=== PATIENT | male | born 1955 | race Two or more races ===

== ENCOUNTER 2021-06-05 07:44 | Outpatient (REF) | payer MEDICAID, SELFPAY | END 2021-06-05 07:45 | disposition home or self-care (01) | LOC: HO.HOSX 07:44 | PROVIDERS: Visit Provider Physician Assistant | DX: Z13.89 Encounter for screening for other disorder (principal) ==

== ENCOUNTER → 2021-06-18 14:07 | Outpatient (BNVA) | payer MEDICAID, SELFPAY | PROVIDERS: Visit Provider Surgery Vascular Surgery | DX: I83.12 Varicose veins of left lower extremity with inflammation (principal) | CPT/HCPCS: 99202 ==

== ENCOUNTER 2021-07-08 12:50 | Outpatient (REF) | payer MEDICAID, SELFPAY ==
--- NOTE | ~2021-07-08 | US_ITS ---
EXAMINATION: BILATERAL LOWER EXTREMITY VENOUS ULTRASOUND (REFLUX EXAM) CLINICAL INDICATION: Bilateral lower extremity varicose veins. COMPARISON: None. TECHNIQUE: Color flow triplex imaging and compression Doppler was performed to evaluate both the deep and the superficial systems bilaterally. To evaluate the superficial system, the examination was performed in the upright position. Color-flow Doppler ultrasound and compression ultrasound were utilized. In addition, maneuvers were utilized to demonstrate reflux. FINDINGS: 1. DEEP VENOUS ULTRASOUND OF THE RIGHT LOWER EXTREMITY: Common Femoral Vein: Compressible, normal respiratory variation and augmented flow. Femoral vein: Compressible, normal color flow and augmentation. Popliteal Vein: Compressible, normal augmentation. Deep Reflux: There is no evidence of reflux in the deep system in either the common femoral vein or the popliteal vein. There is no evidence of a Suarez's cyst. 2. SUPERFICIAL ULTRASOUND WITH DOPPLER OF RIGHT LOWER EXTREMITY GREAT SAPHENOUS VEIN: Saphenofemoral junction-proximal thigh: 1.0 cm; Reflux: Greater than 2.9 seconds. Max diameter: 1.0 cm Min diameter: 0.4 cm Reflux: There is reflux throughout the left great saphenous vein measuring up to 3.2 seconds. DUPLICATED MEDIAL GREAT SAPHENOUS VEIN: None Imaged. DUPLICATED LATERAL GREAT SAPHENOUS VEIN: None Imaged. SMALL SAPHENOUS VEIN: Saphenopopliteal junction: 0.1 cm; Reflux: No evidence of reflux. VEIN OF GIACOMINI: None Imaged. PERFORATORS: Location: Proximal and midcalf. The midcalf shank cementer hand measures up to 4 mm. Reflux: No reflux identified. VARICOSITIES: Location: At knee, proximal and midcalf. All varicosities measure greater than 3 mm. Reflux: There is reflux within the varicosities at the knee and calf measuring up to 1.9 seconds. 3. DEEP VENOUS ULTRASOUND OF THE LEFT LOWER EXTREMITY: Common Femoral Vein: Compressible, normal respiratory variation and augmented flow. Femoral vein: Compressible, normal color flow and augmentation. Popliteal Vein: Compressible, normal augmentation. Deep Reflux: Popliteal vein, greater than 0.9 seconds. There is no evidence of a Suarez's cyst. 4. SUPERFICIAL ULTRASOUND WITH DOPPLER OF LEFT LOWER EXTREMITY GREAT SAPHENOUS VEIN: Saphenopopliteal junction/proximal thigh: 1.0 cm; Reflux: Greater than 3.1 seconds of reflux. Max diameter: 1.0 cm Min diameter: 0.2 cm Reflux: There is reflux throughout the left great saphenous vein measuring up to 3.1 seconds. DUPLICATED MEDIAL GREAT SAPHENOUS VEIN: None Imaged. DUPLICATED LATERAL GREAT SAPHENOUS VEIN: None Imaged. SMALL SAPHENOUS VEIN: Saphenofemoral junction: 0.2 cm; Reflux: No evidence of reflux. VEIN OF GIACOMINI: None Imaged. PERFORATORS: Location: Proximal and distal calf. Perforators measure up to 3 mm. Reflux: All perforators demonstrate reflux measuring up to 2.8 seconds. VARICOSITIES: Location: Midcalf, distal thigh and proximal calf. Varicosities range in size from 3 mm to 1 cm (distal thigh). Reflux: All varicosities imaged are refluxing measuring up to 3.3 seconds. 3. DEEP VENOUS ULTRASOUND OF THE LEFT LOWER EXTREMITY: Common Femoral Vein: Compressible, normal respiratory variation and augmented flow. Femoral vein: Compressible, normal color flow and augmentation. Popliteal Vein: Compressible, normal augmentation. Deep Reflux: Common femoral vein and popliteal vein, measuring greater than 3 seconds. There is no evidence of a Suarez's cyst. US/US venous duplex LE BI IMPRESSION: 1. Bilateral great saphenous venous insufficiency. 2. Bilateral refluxing perforators and varicosities throughout both legs. 3. Bilateral deep venous insufficiency. 4. No evidence of DVT.
== END 2021-07-08 12:51 | disposition home or self-care (01) ==
LOC: HO.US 12:50
PROVIDERS: Visit Provider Surgery Vascular Surgery
DX: I83.893 Varicose veins of bilateral lower extremities with other complications (principal)
CPT/HCPCS: 93970

== ENCOUNTER → 2021-07-21 12:56 | Outpatient (BNVA) | payer MEDICAID, SELFPAY | PROVIDERS: Visit Provider Surgery Vascular Surgery | DX: I83.12 Varicose veins of left lower extremity with inflammation (principal) | CPT/HCPCS: 99212 ==

== ENCOUNTER → 2021-07-24 09:39 | Outpatient (BNVA) | payer MEDICAID, SELFPAY | PROVIDERS: Visit Provider Surgery Vascular Surgery | DX: I83.92 Asymptomatic varicose veins of left lower extremity (principal); E11.9 Type 2 diabetes mellitus without complications; E78.00 Pure hypercholesterolemia, unspecified | CPT/HCPCS: 36482 ==

== ENCOUNTER 2021-07-27 13:47 | Outpatient (REF) | payer MEDICAID, SELFPAY ==
--- NOTE | ~2021-07-27 | US_ITS ---
EXAMINATION: US VENOUS ULTRASOUND WITH DOPPLER LOWER EXTREMITY, LEFT CLINICAL INFORMATION: This is a 65-year-old male who status post closure of the left great saphenous vein on 07/24/2021. COMPARISON: None TECHNIQUE: Ultrasound of the deep veins is performed from the hip to the calf with compression sonography and color and pulse Doppler assessment. Spectral analysis with color-flow imaging is performed. FINDINGS: There is normal venous compression and respiratory variation and augmented flow. The visualized common femoral vein, superficial femoral vein, profunda femoral vein, popliteal vein, and the trifurcation region shows no evidence of deep venous thrombosis. There is no significant popliteal fossa cyst. The left great saphenous vein appears thrombosed. The thrombus begins 0.8 cm from the saphenofemoral junction. No thrombus is seen in the common femoral vein. US/US venous duplex LE LT IMPRESSION: 1. There is no deep vein thrombosis. 2. The patient is status post closure of the left great saphenous vein. The thrombus begins 0.8 cm from the saphenofemoral junction but does not extend into the common femoral vein.
== END 2021-07-27 13:48 | disposition home or self-care (01) ==
LOC: HO.HMGCX 13:47
PROVIDERS: Visit Provider Surgery Vascular Surgery
DX: M79.605 Pain in left leg (principal)
CPT/HCPCS: 93971

== ENCOUNTER → 2021-08-06 12:56 | Outpatient (BNVA) | payer MEDICAID, SELFPAY | PROVIDERS: PCP Nurse Practitioner Family; Visit Provider Surgery Vascular Surgery | DX: I83.11 Varicose veins of right lower extremity with inflammation (principal) | CPT/HCPCS: 99212 ==

== ENCOUNTER → 2021-09-04 08:13 | Outpatient (BNVA) | payer MEDICAID, SELFPAY | PROVIDERS: PCP Nurse Practitioner Family; Visit Provider Surgery Vascular Surgery | DX: I83.11 Varicose veins of right lower extremity with inflammation (principal) | CPT/HCPCS: 36482 ==

== ENCOUNTER 2021-09-07 13:55 | Outpatient (REF) | payer MEDICAID, SELFPAY ==
--- NOTE | ~2021-09-07 | US_ITS ---
EXAMINATION: US VENOUS ULTRASOUND WITH DOPPLER LOWER EXTREMITY, RIGHT CLINICAL INFORMATION: Post-RFA COMPARISON: Previous exam most recent July 2021 TECHNIQUE: Ultrasound of the deep veins is performed from the hip to the calf with compression sonography and color and pulse Doppler assessment. Spectral analysis with color-flow imaging is performed. FINDINGS: There is normal venous compression and respiratory variation and augmented flow. The visualized common femoral vein, superficial femoral vein, profunda femoral vein, popliteal vein, and the trifurcation region shows no evidence of deep venous thrombosis. There is echogenic material seen in the right greater saphenous vein post RFA. This extends to 3.5 cm from the saphenofemoral junction. There is Rouleaux flow seen in the popliteal vein, greater saphenous vein in the upper thigh and saphenofemoral junction. US/US venous duplex LE RT IMPRESSION: No DVT demonstrated in the right lower extremity.
== END 2021-09-07 13:56 | disposition home or self-care (01) ==
LOC: HO.HMGCX 13:55
PROVIDERS: Visit Provider Surgery Vascular Surgery
DX: M79.604 Pain in right leg (principal)
CPT/HCPCS: 93971

== ENCOUNTER → 2021-09-22 12:58 | Outpatient (BNVA) | payer MEDICAID, SELFPAY | PROVIDERS: Visit Provider Surgery Vascular Surgery | DX: I83.11 Varicose veins of right lower extremity with inflammation (principal) | CPT/HCPCS: 99212 ==

== ENCOUNTER 2022-07-28 08:04 | Outpatient (REF) | payer MEDICAID, SELFPAY ==
--- NOTE | ~2022-07-28 | US_ITS ---
EXAMINATION: US ABDOMEN COMPLETE CLINICAL INFORMATION: Elevated liver enzymes. COMPARISON: None TECHNIQUE: Real-time imaging of the abdominal viscera. FINDINGS: PANCREAS: Obscured by overlying bowel gas ABDOMINAL AORTA: Obscured by overlying bowel gas INFERIOR VENA CAVA: Visualized portions are normal. LIVER: Enlarged measuring 18.4 cm The liver contour is normal. Diffuse increased echogenicity of the liver parenchyma. No focal hepatic lesion. There is no intrahepatic biliary duct dilatation seen. GALLBLADDER: Normal. The gallbladder is physiologically distended without evidence of stones, sludge, polyps, wall thickening or pericholecystic fluid. COMMON BILE DUCT: Normal in caliber measuring 0.6 cm in diameter. RIGHT KIDNEY: Normal. No hydronephrosis. No renal calculi or focal parenchymal lesions. The kidney measures 10.9 cm in maximum dimension. LEFT KIDNEY: Normal. No hydronephrosis. No renal calculi or focal parenchymal lesions. The kidney measures 10.6 cm in maximum dimension. SPLEEN: Normal. The spleen measures 10.0 cm in maximum dimension. FREE FLUID: None. US/US abdomen complete IMPRESSION: Hepatomegaly. Diffuse increased echogenicity of the liver parenchyma likely reflects fatty infiltration.
== END 2022-07-28 08:05 | disposition home or self-care (01) ==
LOC: HO.US 08:04
PROVIDERS: Visit Provider Registered Nurse
DX: R74.8 Abnormal levels of other serum enzymes (principal)
CPT/HCPCS: 76700

== ENCOUNTER → 2023-10-24 09:17 | Outpatient (BNVA) | payer MEDICAID, SELFPAY | PROVIDERS: PCP Registered Nurse; Visit Provider Nurse Practitioner Family ==

== ENCOUNTER 2023-12-12 12:24 | Outpatient (REF) | payer MEDICARE, MEDICAID, SELFPAY ==
[2023-12-12 13:45] LABS: Alanine Aminotransferase 19 U/L (0-40); Albumin Level 4.3 g/dL (3.5-5.0); Alkaline Phosphatase 139 U/L (39-117); Anion Gap 13 (12-20); Aspartate Amino Transferase 21 U/L (5-37); Bilirubin Total 0.8 mg/dL (0.0-1.0); Blood Urea Nitrogen 12 mg/dL (9-16); Calcium 9.3 mg/dL (8.4-10.2); Carbon Dioxide 27 mmol/L (22-29); Chloride 100 mmol/L (96-108); Cholesterol 165 mg/dL (<200); Estimated Glomerular Filt Rate > 60; Glucose Random 112 mg/dL (60-115); HDL Cholesterol 46 mg/dL (>40); LDL Cholesterol Calculated 105 mg/dL (<100); Potassium 3.9 mmol/L (3.3-5.1); Sodium 136 mmol/L (135-145); Total Protein 7.4 g/dL (6.5-8.0); Triglycerides 72 mg/dL (<150)
[2023-12-12 14:20] LABS: Creatinine Urine 94.98 mg/dL; Microalbum/Creatinine Ratio Ur 8.4 ug/mg cr (<30)
== END 2023-12-12 12:25 | disposition home or self-care (01) ==
LOC: HO.HHCL 12:24
PROVIDERS: Visit Provider Registered Nurse
DX: E11.65 Type 2 diabetes mellitus with hyperglycemia (principal)
CPT/HCPCS: 36415; 80053; 80061; 82043; 82570

== ENCOUNTER 2024-06-11 10:12 | Outpatient (REF) | payer MEDICARE, MEDICAID, SELFPAY ==
--- NOTE | ~2024-06-11 | XR_ITS ---
EXAMINATION: XR KNEE, LEFT CLINICAL INFORMATION: Chronic left knee pain. COMPARISON: 06/17/2018. TECHNIQUE: Three views of the left knee. FINDINGS: Severe medial compartment joint space narrowing with marginal osteophytes and articular sclerosis. More moderate patellofemoral and lateral compartment osteoarthritis. No joint effusion. Varus angulation at the knee. Enthesopathic spurring at the proximal aspect of the tibia posteriorly. Osseous loose body in the posterior aspect of the joint measures 1 cm. Atherosclerotic calcification in the popliteal fossa. 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 Electronically signed by: Carmelo Shipley MD 06/17/2024 05:17 PM EDT
== END 2024-06-11 10:13 | disposition home or self-care (01) ==
LOC: HO.HHCX 10:12
PROVIDERS: Visit Provider Registered Nurse
DX: M25.562 Pain in left knee (principal); G89.29 Other chronic pain
CPT/HCPCS: 73564

== ENCOUNTER 2024-06-15 08:42 | Outpatient (REF) | payer MEDICARE, MEDICAID, SELFPAY ==
--- NOTE | ~2024-06-15 | US_ITS ---
EXAMINATION: ABDOMINAL AORTIC ULTRASOUND CLINICAL INFORMATION: Former smoker. COMPARISON: None available. TECHNIQUE: Mancera-scale, color Doppler and spectral Doppler evaluation of the abdominal aorta was performed. FINDINGS: 1. The aorta is normal. 2. The measurements of the aorta in maximum AP and transverse dimensions respectively are as follows: Proximal: 2.7 x 2.6 cm, Mid: 1.9 x 1.9 cm, Distal: 1.8 x 1.8 cm. 3.The measurements of the common iliac arteries in maximum AP dimension are as follows: Right common iliac artery: 1.1 x 1.1 cm, left common iliac artery: 1.1 x 1.1 cm. US/US abdominal aortic aneurysm IMPRESSION: No evidence of abdominal aortic aneurysm. Electronically signed by: Parviz Anderson MD 06/17/2024 11:24 AM EDT
== END 2024-06-15 08:43 | disposition home or self-care (01) ==
LOC: HO.US 08:42
PROVIDERS: PCP Registered Nurse; Visit Provider Registered Nurse
DX: Z13.6 Encounter for screening for cardiovascular disorders (principal); I10 Essential (primary) hypertension; Z87.891 Personal history of nicotine dependence
CPT/HCPCS: 76706

== ENCOUNTER 2024-07-10 08:43 | Outpatient (RCR) | payer MEDICARE, MEDICAID, SELFPAY | END 2024-07-23 13:08 | disposition home or self-care (01) | LOC: HO.PT 08:43 | PROVIDERS: PCP Registered Nurse; Visit Provider Registered Nurse | DX: M25.562 Pain in left knee (principal) | CPT/HCPCS: 97110; 97162 ==

== ENCOUNTER 2024-08-01 17:35 | Emergency (ER) | payer MEDICARE, MEDICAID, SELFPAY ==
--- NOTE | ~2024-08-01 | XR_ITS ---
EXAMINATION: XR HAND/WRIST, RIGHT CLINICAL INFORMATION: Right hand laceration/fall. Query fracture. COMPARISON: None available. TECHNIQUE: PA, lateral, and oblique and scaphoid views of the right hand and wrist. FINDINGS: No acute fracture or dislocation is seen. 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 Joint space narrowing with degenerative changes are seen most notable at the second and third MCP joints, and first IP joint. Soft tissue ossifications ossification are seen adjacent to the first IP joint and third and fourth PIP joints. XR/XR hand wrist RT IMPRESSION: 1. No acute fracture or dislocation is seen. 2. Degenerative changes are seen in the hand and wrist. Electronically signed by: Ronald Moulton MD 08/01/2024 08:30 PM EDT
[2024-08-01 18:38] VITALS: BP 153/95; PULSE 107; RESP 16; TEMP 36.9; O2SAT 96; BMI 30.1
--- NOTE | 2024-08-01 18:42 | ED_ITS ---
HPI - General Adult General Chief complaint: Wound/Laceration Stated complaint: R hand laceration Time Seen by Provider: 08/01/24 21:06 Source: patient and family Mode of arrival: ambulatory Limitations: no limitations History of Present Illness ED Provider: Dr. Castillo HPI narrative: Patient tripped and fell landing on right hand causing a large laceration to his palm. He denies passing out, no chest pain is not up to date with his tetanous. Patient is a diabetic with high cholesterol. Onset (ago): hour(s) Severity: moderate Related Data Home Medications ?Medication ?Instructions ?Recorded ?Confirmed atorvastatin 80 mg tablet (Lipitor) 80 mg PO DAILY 06/18/21 glipizide 2.5 mg tablet, extended 2.5 mg PO DAILY 06/18/21 release 24 hr hydrochlorothiazide 25 mg tablet 25 mg PO QAM 06/18/21 lisinopril 10 mg tablet 10 mg PO DAILY 06/18/21 metformin 500 mg tablet 500 mg PO BID 06/18/21 naproxen 500 mg tablet 500 mg PO BID 06/18/21 omeprazole 20 mg capsule,delayed 20 mg PO DAILY 06/18/21 release ergocalciferol (vitamin D2) 1,250 1,250 mcg PO QWEEK 10/24/23 mcg (50,000 unit) capsule dulaglutide 0.75 mg/0.5 mL mg subcut QWEEK 02/13/24 subcutaneous pen injector (Trulicity) Previous Rx's ?Medication ?Instructions ?Recorded bisacodyl 5 mg tablet,delayed 20 mg (4 x 5 mg) PO ONCE 1 day #4 10/24/23 release (Dulcolax (bisacodyl)) tabs polyethylene glycol 3350 17 238 g PO ONCE #238 grams 10/24/23 gram/dose oral powder (Miralax) amoxicillin 875 mg-potassium 1 tab PO BID #10 tabs 08/01/24 clavulanate 125 mg tablet Allergies Allergy/AdvReac Type Severity Reaction Status Date / Time No Known Allergies Allergy Verified 08/01/24 18:39 Review of Systems Review of Systems: Yes all other systems are reviewed and are negative Neurologic: Denies Sensory deficit (Neuro) PMFSH Past Medical History Medical History Hypercholesteremia Diabetes Surgical History Hx of colonoscopy Family History Family History Brother Cancer Social History Social History Unable to assess alcohol history related to: Unknown Patient Tobacco Use Status: Never used Tobacco Smoked in Last 30 Days: No Use of substances other than those prescribed or required for medical reasons: Unknown Advance Directives: No Advance Directives Information Provided: No Physical Exam ED Vital Signs: Vital Signs - 24 hr 08/01/24 18:38 08/01/24 22:38 08/01/24 22:46 Temperature 98.4 F 97.8 F 97.8 F Pulse Rate 107 H 96 96 Respiratory Rate 16 16 16 Blood Pressure 153/95 H 139/89 139/89 Pulse Oximetry 96 98 98 Oxygen Delivery Method Room Air Room Air Room Air BMI result Body Mass Index 30.1 Const General: healthy appearing Nutritional Appearance: average body habitus Orientation/consciousness: oriented to person and patient oriented x3 Limitations: no limitations HENMT Head: Yes normal to inspection Ears: external ears normal General nose exam: Normal external nose present Mouth: Normal oral and palatal mucosa present and oropharynx normal Throat: Yes posterior oropharynx normal Eyes General: appearance normal, both eyes and all related structures Neck Neck: Yes normal visual inspection Chest Chest palpation & inspection: normal inspection of the chest Resp Auscultation: clear to auscultation bilaterally Cardio Jugular venous distension: no JVD Rate: regular rate Rhythm: regular rhythm Heart sounds: S1 normal heart sound present and S2 normal heart sound present GI Inspection: Yes normal to inspection Palpation (GI): Soft to palpation, nontender and No hepatosplenomegaly present Auscultation: normal bowel sounds General: Yes no CVA tenderness Back/Spine/Pelvis Back: no CVA tenderness Skin Other: see extremity note Neuro General: oriented to person and patient oriented x3 Cranial nerves: Yes CN's II-XII intact bilaterally Motor exam (neuro): 5/5 motor strength present throughout Sensory Exam: No Sensory deficit (Neuro) Extrem Other: right hand with 10cm laceration across his entire palm, all fingers moving no evidence of tendon laceration. Psych Appearance: grossly normal Course Course Course Narrative: RME: 68 yold male presents to the ED for right hand laceration and pain after using hand to break fall. physical exam positive for palm laceration that is deep and large. Positive for complete range of motion of fingers. Vascular motor neuro exam of extremity intact. Reevaluation(s) Reevaluation #1: Patient prepped and draped in sterile fashion, 1% lidocaine used for anesthesia, wound irrigated under pressure with saline, closed with 4-0 nylon x 20. Patient tolerated procedure well. Time: 22:26 Medications Administered Discontinued Medications Generic Name Dose Route Start Last Admin Trade Name Freq PRN Reason Stop Dose Admin Amoxicillin/Clavulanate Potassium 875 mg 08/01/24 22:26 08/01/24 22:41 Amoxicillin/Potassium Clav 875 Mg Tablet PO 08/01/24 22:27 875 mg ONCE ONE Administration Diphtheria/Tetanus/Acell Pertussis 0.5 ml 08/01/24 21:18 08/01/24 22:28 Diphth,Pertus(Acell),Tet Adult 0.5 Ml Syringe IM 08/01/24 21:19 0.5 ml .ONCE ONE Administration Lidocaine HCl 20 ml 08/01/24 21:18 08/01/24 21:31 Lidocaine Hcl 1 % 20 Ml Vial SUBCUT 08/01/24 21:19 Not Given ONCE ONE Lidocaine HCl 30 ml 08/01/24 22:26 08/01/24 22:34 Lidocaine Hcl 1 % 10 Ml Vial SUBCUT 08/01/24 22:27 30 ml ONCE ONE Administration Medical Decision Making Differential Diagnosis Differential Diagnoses: The differential diagnosis associated with the presentation includes (hand laceration, hand fracture, tendon injury) Admission/Observation Consideration of admission/observation: Escalation of care including admission/observation considered (upon arrival patient with large injury was considered for admission on possible surgery) Independent Interpretation I performed an independent interpretation of an: Plain X-Ray (Hand and wrist, djd no fracture) Independent Historian Clinical information obtained from an independent historian. History obtained f rom or confirmed by: Other (daughter) Chronic Conditions Patient?s care impacted by: Diabetes Discharge Plan Discharge Clinical Impression: Laceration Patient Disposition: Home, Self-Care Instructions: Care For Your Stitches (ED) Additional Instructions: suture removal 10 days Prescriptions: New amoxicillin-pot clavulanate 875-125 mg tablet 1 tab PO BID Qty: 10 0RF No Action Anthonyity 0.75 mg/0.5 mL pen injector subcut QWEEK metformin 500 mg tablet 500 mg PO BID omeprazole 20 mg capsule,delayed release(DR/EC) 20 mg PO DAILY hydrochlorothiazide 25 mg tablet 25 mg PO QAM naproxen 500 mg tablet 500 mg PO BID lisinopril 10 mg tablet 10 mg PO DAILY glipizide 2.5 mg tablet extended release 24hr 2.5 mg PO DAILY atorvastatin [Lipitor] 80 mg tablet 80 mg PO DAILY ergocalciferol (vitamin D2) 1,250 mcg (50,000 unit) capsule 1,250 mcg PO QWEEK bisacodyl [Dulcolax (bisacodyl)] 5 mg tablet,delayed release (DR/EC) 20 mg PO ONCE 1 Days Qty: 4 0RF Rx Instructions: take 4 tabs at noon the day before your colonoscopy polyethylene glycol 3350 [Miralax] 17 gram/dose powder 238 g PO ONCE Qty: 238 0RF Rx Instructions: As directed by gastroenterology department at [facility] Interventions: ED Discharge Assessment Last Done: 08/01/24 22:46 Discharge Date/Time: 08/01/24 22:47 Print Language: Maltese
[2024-08-01] MEDS: Diphth,Pertus(ACell),Tet Adult 0.5 ML SYRINGE IM (22:28)
[2024-08-01] MEDS: Lidocaine HCl 1 % 10 ML VIAL 30 ML SUBCUT (22:34)
[2024-08-01 22:38] VITALS: BP 139/89; PULSE 96; RESP 16; TEMP 36.6; O2SAT 98
[2024-08-01] MEDS: Amoxicillin/Potassium Clav 875 MG TABLET PO (22:41)
[2024-08-01 22:46] VITALS: BP 139/89; PULSE 96; RESP 16; TEMP 36.6; O2SAT 98
== END 2024-08-01 22:47 | disposition home or self-care (01) ==
PROVIDERS: Emergency Provider Emergency Medicine; PCP Registered Nurse
DX: S61.411A Laceration without foreign body of right hand, initial encounter (principal); W01.0XXA Fall on same level from slipping, tripping and stumbling without subsequent striking against object, initial encounter; Y93.9 Activity, unspecified; Y92.9 Unspecified place or not applicable; Y99.9 Unspecified external cause status; E11.9 Type 2 diabetes mellitus without complications; Z23 Encounter for immunization; Z79.899 Other long term (current) drug therapy
CPT/HCPCS: 73110; 73130; 90471; 90715; 99284; J2003

== ENCOUNTER 2024-08-13 10:51 | Emergency (ER) | payer MEDICARE, MEDICAID, SELFPAY ==
[2024-08-13 11:19] VITALS: BP 154/100; PULSE 113; RESP 20; TEMP 36.6; O2SAT 93; BMI 34.2
--- NOTE | 2024-08-13 11:19 | ED.GENADULT ---
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 Initially injured on 08/01, seen here, had neg x-ray, sutures placed, and was started on Augmentin. He completed the full course of Augmentin as prescribed. States when his PCP removed the sutures, a small area in the center of the wound remained opened and so they applied steri-strips. Patient denies any weakness, numbness, tingling to fingers or hand. Denies any drainage. Denies fevers/chills/body aches. Denies pain to hand. MD complaint: wound dehiscence Onset (ago): day(s) Location: right and upper extremity Associated symptoms: denies other symptoms Related Data Home Medications ?Medication ?Instructions ?Recorded ?Confirmed atorvastatin 80 mg tablet (Lipitor) 80 mg PO DAILY 06/18/21 glipizide 2.5 mg tablet, extended 2.5 mg PO DAILY 06/18/21 release 24 hr hydrochlorothiazide 25 mg tablet 25 mg PO QAM 06/18/21 lisinopril 10 mg tablet 10 mg PO DAILY 06/18/21 metformin 500 mg tablet 500 mg PO BID 06/18/21 naproxen 500 mg tablet 500 mg PO BID 06/18/21 omeprazole 20 mg capsule,delayed 20 mg PO DAILY 06/18/21 release ergocalciferol (vitamin D2) 1,250 1,250 mcg PO QWEEK 10/24/23 mcg (50,000 unit) capsule dulaglutide 0.75 mg/0.5 mL mg subcut QWEEK 02/13/24 subcutaneous pen injector ([facility]) Previous Rx's ?Medication ?Instructions ?Recorded bisacodyl 5 mg tablet,delayed 20 mg (4 x 5 mg) PO ONCE 1 day #4 10/24/23 release (Dulcolax (bisacodyl)) tabs polyethylene glycol 3350 17 238 g PO ONCE #238 grams 10/24/23 gram/dose oral powder (Miralax) amoxicillin 875 mg-potassium 1 tab PO BID #10 tabs 08/01/24 clavulanate 125 mg tablet Allergies Allergy/AdvReac Type Severity Reaction Status Date / Time No Known Allergies Allergy Verified 08/13/24 11:22 Review of Systems Review of Systems: As per HPI. Yes all other systems are reviewed and are negative Constitutional: Constitutional: Reports as per HPI [facility] Past Medical History Medical History Hypercholesteremia Diabetes Surgical History Hx of colonoscopy Family History Family History Brother Cancer Social History Social History Unable to assess alcohol history related to: Unknown Patient Tobacco Use Status: Never used Tobacco Advance Directives: No Advance Directives Information Provided: Yes Do you have a plan to hurt others: No Plan Physical Exam ED Vital Signs: Vital Signs - 24 hr 08/13/24 11:19 08/13/24 17:11 Temperature 98 F 97.8 F Pulse Rate 113 H 101 H Respiratory Rate 20 16 Blood Pressure 154/100 H 158/88 H Pulse Oximetry 93 98 Oxygen Delivery Method Room Air Room Air BMI result Body Mass Index 34.2 Vital signs have been reviewed and appear to be correct. Blood pressure elevated. Heart rate slightly tachycardic. Respiratory rate normal. Temperature normal. Oxygen saturation normal. Const General: cooperative, healthy appearing and no acute distress Orientation/consciousness: oriented to person, oriented to place, oriented to time and patient oriented x3 Limitations: no limitations [facility] Head: Yes normocephalic and Yes atraumatic Ears: external ears normal General nose exam: Normal external nose present Face and sinus: Yes face symmetric Mouth: oropharynx normal and moist mucous membranes Throat: Yes uvula midline Eyes Pupils: Equal, round and reactive pupils present Neck Neck: Yes normal visual inspection and Yes supple Resp Effort & Inspection: normal respiratory effort and able to speak in complete sentences Auscultation: clear to auscultation bilaterally Cardio Rate: regular rate Rhythm: regular rhythm Heart sounds: S1 normal heart sound present and S2 normal heart sound present GI Palpation (GI): Soft to palpation and nontender Auscultation: normoactive bowel sounds General: Yes no CVA tenderness Back/Spine/Pelvis Back: no CVA tenderness Skin General skin exam: elasticity normal and turgor normal Neuro General: oriented to person, oriented to place, oriented to time, patient oriented x3, moves all extremities, no focal motor deficits and CN's II-XI intact bilaterally Cranial nerves: Yes Equal, round and reactive pupils present Cognition (Neuro): normal cognition Extrem Other: General: Yes full ROM, Yes no pedal edema and Yes no calf tenderness Right upper extremity: Extremity exam: right hand Details: normal capillary refill, neuromotor exam normal, neurosensory exam normal, tendon exam normal, vascular exam Details: radial pulse present, normal ROM of fingers and other (wound on palm with well approximated edges and dehiscence in center of wound with macerated tissue to edges, see photo); no tenderness and no unusual warmth Psych Mental Status: mental status grossly normal Affect: normal affect Thought process: Normal thought process present Course Course Course Narrative: RME performed by Ashtyn Macedo PA-C. Patient is a 68 year old assigned male at presenting to the emergency department with a right hand wound that has re-opened. Patient states he got stitches on 08/01 and had them removed the other day and now his wound has re-opened. Patient states that he finished his antibiotic as prescribed. Detailed physical exam and review of systems are deferred to the meter tester primary. Patient placed back in the waiting room pending room availability. Medications Administered Discontinued Medications Generic Name Dose Route Start Last Admin Trade Name Shay PRN Reason Stop Dose Admin Bacitracin 1 appl 08/13/24 17:52 08/13/24 17:58 Bacitracin Oint 0.9 Gm Packet TOPICAL 08/13/24 17:53 1 appl ONCE ONE Administration Protocol Medical Decision Making Medical Decision Making [facility] Narrative: Patient is a 68-year-old right hand dominant [place] speaking male with history of DM presenting to the ED with complaint of right hand wound which was reopened after sutures were removed on Tuesday by PCP. On exam patient is awake, A+Ox3, VS WNL, afebrile, normal neurological exam without focal deficits, physical exam findings as above. No pus or drainage from wound, no surrounding erythema or warmth, does not appear acutely infected. Given reported symptoms and physical exam findings, initial differential includes wound dehiscence, infection, impaired wound healing. He is neurovascularly intact with good ROM. Case discussed with morgan Pete, who recommends cleaning wound, applying small amount of bacitracin, and applying nonstick dressing as well as advising patient to clean area once daily with half strength peroxide, and keeping hand open to air unless at risk for becoming soiled. Patient states he is not currently working at this time, does not do any gardening or other activities where his hand might become soiled. Advised patient that if he were to do any activities where his hand might become soiled, to cover the area with the nonstick dressing. Per morgan, patient can follow up with PCP if wound is healing well, return to ED with any complications. Strict return precautions discussed with patient at bedside. Patient verbalized understanding of and agreement with plan. In-person interpreter and translator was utilized for all interactions, assessments, and discussions. Differential Diagnosis Differential Diagnoses: The differential diagnosis associated with the presentation includes As per MDM Consult Healthcare Provider Management of the patient was discussed with: Heel Sorter (morgan Pete) External Record Review External record reviewed: Inpatient record, Office record and Outpatient record Chronic Conditions Patient?s care impacted by: Diabetes Discharge Plan Discharge Clinical Impression: Dehiscence of wound Patient Disposition: Home, Self-Care Additional Instructions: You were evaluated in the emergency department today for a wound to your right hand which reopened after sutures were removed. In the emergency department, some of the skin was removed from the wound and a new dressing was applied. We recommend that you clean the area once daily with half-strength hydrogen peroxide (1 part peroxide to 1 part water). Do not apply full strength peroxide to the wound. You can also wash her hand in the sink or shower with soap and water. If your hands will not be getting soiled, you can leave the wound open to air. If you are going to do something where hands may get soiled, we recommend covering the wound with the nonstick dressings provided to you. Do not use Band-Aids as this will cause the wound to retain too much moisture. Follow-up with your primary care provider. Assess the area daily for any new redness, swelling, thick yellow drainage and return to the emergency department if these occur. You should also return to the emergency department if you develop redness streaking up your arm, fever, new weakness, numbness, tingling to your hand or any other concerning symptoms. Avoid any activities that may cause your hand to become dirty/soiled. Prescriptions: No Action amoxicillin-pot clavulanate 875-125 mg tablet 1 tab PO BID Qty: 10 0RF Trulicity 0.75 mg/0.5 mL pen injector subcut QWEEK metformin 500 mg tablet 500 mg PO BID omeprazole 20 mg capsule,delayed release(DR/EC) 20 mg PO DAILY hydrochlorothiazide 25 mg tablet 25 mg PO QAM naproxen 500 mg tablet 500 mg PO BID lisinopril 10 mg tablet 10 mg PO DAILY glipizide 2.5 mg tablet extended release 24hr 2.5 mg PO DAILY atorvastatin [Lipitor] 80 mg tablet 80 mg PO DAILY ergocalciferol (vitamin D2) 1,250 mcg (50,000 unit) capsule 1,250 mcg PO QWEEK bisacodyl [Dulcolax (bisacodyl)] 5 mg tablet,delayed release (DR/EC) 20 mg PO ONCE 1 Days Qty: 4 0RF Rx Instructions: take 4 tabs at noon the day before your colonoscopy polyethylene glycol 3350 [Miralax] 17 gram/dose powder 238 g PO ONCE Qty: 238 0RF Rx Instructions: As directed by gastroenterology department at [facility] Print Language: [place]de[place]
[2024-08-13 17:11] VITALS: BP 158/88; PULSE 101; RESP 16; TEMP 36.6; O2SAT 98
--- NOTE | 2024-08-13 17:12 | PC.NURSE ---
patient a&ox3, vss, pt states his rt hand has 2-3/10 pain, pt awaiting provider, call hyatt within reach, will continue to monitor
[2024-08-13] MEDS: Bacitracin Oint 0.9 GM PACKET 1 APPL TOPICAL (17:58)
[2024-08-13 18:28] VITALS: BP 156/85; PULSE 100; RESP 16; TEMP 36.5; O2SAT 98
== END 2024-08-13 18:31 | disposition home or self-care (01) ==
PROVIDERS: Emergency Provider Emergency Medicine; PCP Registered Nurse
DX: M79.641 Pain in right hand (principal); T81.30XA Disruption of wound, unspecified, initial encounter; Z79.899 Other long term (current) drug therapy
CPT/HCPCS: 99283

== ENCOUNTER 2024-09-19 12:46 | Outpatient (AMB) | payer MEDICARE, MEDICAID, SELFPAY ==
[2024-09-19 12:47] VITALS: BMI 34.2
--- NOTE | 2024-09-19 12:47 | A.OFFVIS_ITS ---
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 He describes his pain as sharp in nature. His pain has gotten worse over the last few years in spite of continued non operative treatments. He has tried physical therapy exercises which aggravated his pain. He has also tried Tylenol and anti-inflammatory medicines which gave him minimal relief. He has not had an injection. He wishes to hold off on surgery if at all possible. [employer] Sprayer Required: No Allergies No Known Allergies Allergy (Verified 09/19/24 12:48) Medication List - Last Reconciled 09/19/24 by Xiang Aremndariz MD atorvastatin (Lipitor) 80 mg PO DAILY bisacodyl (Dulcolax (bisacodyl)) 20 mg (4 x 5 mg) PO ONCE 1 day dulaglutide (Trulicity) mg subcut QWEEK ergocalciferol (vitamin D2) 1,250 mcg PO QWEEK glipizide ER 2.5 mg PO DAILY hydrochlorothiazide 25 mg PO QAM lisinopril 10 mg PO DAILY metformin 500 mg PO BID naproxen 500 mg PO BID omeprazole 20 mg PO DAILY polyethylene glycol 3350 (Miralax) 238 grams PO ONCE PFSH Medical History Hypercholesteremia Diabetes Surgical History Hx of colonoscopy Family History Brother Cancer Social History Unable to assess alcohol history related to: Unknown Patient Tobacco Use Status: Never used Tobacco Physical Exam Vital Signs: BMI result Body Mass Index 34.2 Const Other: Well-nourished well-developed very friendly male awake alert and oriented x3 in no acute distress Extrem Other: Bilateral lower extremity examination shows good capillary refill, no skin lesions noted, normal sensation light touch Left knee examination shows a mild effusion, palpable crepitus with range of motion, pain with range of motion, no instability Office Procedures AMB Joint Injection/Aspiration Joint Injection/Aspiration Primary Site: left knee Prep: site was prepped using aseptic technique Injected: 40 mg of, DepoMedrol and 1% plain lidocaine Procedure: The patient tolerated the procedure well Coding 33206 - Large joint Procedure code (CPT) selection complete Results Reviewed Results Reviewed: X-rays of the patient's left knee show severe joint space narrowing, subchondral sclerosis, no acute bony abnormalities Assessment & Plan Assessment & Plan (1) Arthritis of left knee: Code(s): M17.12 - Unilateral primary osteoarthritis, left knee Category: Medical Plan Mr. Christiansen presents with left knee pain due to degenerative joint disease. I had a lengthy discussion with the patient regarding the treatment options. The risks and benefits of a left knee cortisone injection were discussed at length with the patient. The patient wished proceed. He tolerated the injection well. He will continue with his activity modifications. He will contact me prior to his follow-up appointment in 3 months should any questions or concerns arise. Feel free to call me at any time should questions regarding his orthopedic management arise. Thank you very much for asking me to see this very friendly adam castro. I spent 22 minutes in reviewing the patient's records and imaging studies, seeing the patient and documenting in the medical record. Orders: Orders AMB Joint Injection/Aspiration Today M17.12 - Unilateral primary osteoarthritis, left knee Coding Level of Care Code New Pt Level 3 (02484) Complex EM visit Add On G2211 Diagnoses Arthritis of left knee M17.12 CPT Codes Coding - 26486 Large joint: 76093 - Large joint ([id number])
== END 2024-09-19 13:14 | disposition home or self-care (01) ==
PROVIDERS: PCP Registered Nurse; Visit Provider Orthopaedic Surgery
DX: M17.12 Unilateral primary osteoarthritis, left knee (principal)
CPT/HCPCS: 20610; 99203

== ENCOUNTER → 2024-09-19 12:46 | Outpatient (BNVA) | payer MEDICARE, MEDICAID, SELFPAY | PROVIDERS: PCP Registered Nurse; Visit Provider Orthopaedic Surgery | DX: M17.12 Unilateral primary osteoarthritis, left knee (principal) | CPT/HCPCS: 20610; 99202; J1010; J2003 ==

== ENCOUNTER 2024-09-25 09:18 | Day surgery (SDC) | payer MEDICARE, MEDICAID, SELFPAY ==
--- NOTE | 2024-09-24 12:29 | HO.ANESPROP2 ---
Documented by User: Naty Klein NP 09/24/24 12:30 HPI - Anesthesia Eval Consult details Narrative: 68yo M for Colonoscopy Anesthesia Pre-Procedure Meds Is the patient on any of the following meds?: GLP1/DPP4 PMFSH Active Problems Active Problems: All Active Problems Arthritis of left knee (Acute) Varicose veins of right lower extremity with inflammation (Acute) Varicose veins of left lower extremity with inflammation (Acute) Past Medical History Medical History Hypercholesteremia Diabetes Family History Family History Brother Cancer Surgical History Surgical History Hx of colonoscopy Social History Social History Unable to assess alcohol history related to: Unknown Patient Tobacco Use Status: Never used Tobacco Advance Directives: No Advance Directives Information Provided: Yes Meds Allergies Allergy/AdvReac Type Severity Reaction Status Date / Time No Known Allergies Allergy Verified 09/19/24 12:48 Home Medications ?Medication ?Instructions ?Recorded ?Confirmed ?Last Taken ?Type atorvastatin 80 mg tablet (Lipitor) 80 mg PO DAILY 06/18/21 09/19/24 09/16/24 History glipizide 2.5 mg tablet, extended 2.5 mg PO DAILY 06/18/21 09/19/24 09/16/24 History release 24 hr hydrochlorothiazide 25 mg tablet 25 mg PO QAM 06/18/21 09/19/24 09/16/24 History lisinopril 10 mg tablet 10 mg PO DAILY 06/18/21 09/19/24 09/16/24 History metformin 500 mg tablet 500 mg PO BID 06/18/21 09/19/24 09/16/24 History omeprazole 20 mg capsule,delayed 20 mg PO DAILY 06/18/21 09/19/24 09/16/24 History release ergocalciferol (vitamin D2) 1,250 1,250 mcg PO QWEEK 10/24/23 09/19/24 09/16/24 History mcg (50,000 unit) capsule dulaglutide 0.75 mg/0.5 mL mg subcut QWEEK 02/13/24 09/19/24 09/16/24 History subcutaneous pen injector (Trulicity) Assessment and Plan Assessment Anesthesia Assessment: Chart Reviewed Documented by User: Yun Paul MD 09/25/24 11:03 HPI - Anesthesia Eval Anesthesia Pre-Procedure Meds Is the patient on any of the following meds?: GLP1/DPP4 (Last dose of Trulicity 09/16/24) PMFSH Past Medical History Medical History Hypercholesteremia Diabetes Family History Family History Brother Cancer Family history of problems with anesthesia: No Surgical History Surgical History Hx of colonoscopy History of Problems with Anesthesia: No Social History Social History Unable to assess alcohol history related to: Unknown Patient Tobacco Use Status: Never used Tobacco Advance Directives: No Advance Directives Information Provided: Yes Meds Allergies Allergy/AdvReac Type Severity Reaction Status Date / Time No Known Allergies Allergy Verified 09/19/24 12:48 Home Medications ?Medication ?Instructions ?Recorded ?Confirmed ?Last Taken ?Type atorvastatin 80 mg tablet (Lipitor) 80 mg PO DAILY 06/18/21 09/19/24 09/16/24 History glipizide 2.5 mg tablet, extended 2.5 mg PO DAILY 06/18/21 09/19/24 09/16/24 History release 24 hr hydrochlorothiazide 25 mg tablet 25 mg PO QAM 06/18/21 09/19/24 09/16/24 History lisinopril 10 mg tablet 10 mg PO DAILY 06/18/21 09/19/24 09/16/24 History metformin 500 mg tablet 500 mg PO BID 0909/19/24 09/16/24 History omeprazole 20 mg capsule,delayed 20 mg PO DAILY 06/18/21 09/19/24 09/16/24 History release ergocalciferol (vitamin D2) 1,250 1,250 mcg PO QWEEK 10/24/23 09/19/24 09/16/24 History mcg (50,000 unit) capsule dulaglutide 0.75 mg/0.5 mL mg subcut QWEEK 02/13/24 09/19/24 09/16/24 History subcutaneous pen injector (Trulicity) Exam Height,Weight and Vital Signs: Height 5 ft 8 in Weight 95.844 kg Vital Signs Temp Pulse Resp BP Pulse Ox O2 Del Method 09/25/24 09:23 97.5 F 102 H 20 163/92 H 96 Room Air Pertinent Lab Results Pertinent Lab Results: Lab Results 09/25/24 Range/Units 09:31 POC Glucose 226 H (60-115) mg/dL Airway Mallampati Class: II TM Dist: >3cm Neck ROM: Full Loose/Missing/Broken Teeth: No Heart: RRR Lungs: CTAB Assessment and Plan Assessment Anesthesia Assessment: Anesthesia Plan Discussed and Chart Reviewed Final Anesthetic Review Family History of Problems with Anesthesia: No History of Problems with Anesthesia: No NPO: Yes ASA Class: III Final Preanesthetic Review: No Changes in Pt Med Stat, Meds/Allgs Chart Reviewed, Consent Obtained/Reviewed and Anes Risks/Benef Reviewed Patient Risk: Intermediate Procedure Risk: Low Assessment/Block/Sedation in SS: Assess/Block/Sedation-SS Anesthetic Plan Anesthetic Plan: TIVA Disposition: Standard PACU
[2024-09-25 09:21] VITALS: BMI 34.4
[2024-09-25 09:23] VITALS: BP 163/92; PULSE 102; RESP 20; TEMP 36.4; O2SAT 96; BMI 32.1
[2024-09-25 09:36] LABS: Glucose, Whole Blood 226 mg/dL (60-115)
[2024-09-25] MEDS: Lactated Ringers 1,000 ML 100 ML IVCONT (09:53)
--- NOTE | 2024-09-25 10:18 | P.HPSUR_ITS ---
Pre-Procedural Eval Section A - 24 Hr Update-Section A only Date of Service: 09/25/24 Section B - Complete if H&P > 30 days Chief Complaint: Encounter for screening for malignant neoplasm of Relevant Family History (Specify if Yes): No Relevant Social History: None Present Medications: see Short Stay Collaborative assessment Medical History: Significant History (Hypercholesteremia Diabetes) History of Previous Operations: Relevant previous surgery/procedure and date(s) ( Hx of colonoscopy) Allergies: Allergies Allergy/AdvReac Type Severity Reaction Status Date / Time No Known Allergies Allergy Verified 09/19/24 12:48 Review of Systems Sugical H&P ROS: Negative: Constitution, Cardiovascular, Respiratory, Neurological, Psychiatric, Hem-Onc, Allergic/Immunologic, Gastrointestinal, Genitourinary, Musculoskeletal, Integumentary, Endocrine and Eyes/E ars/Nose/Throat Exam Surgical H&P Exam: Normal: HEENT, Normal: Heart, Normal: Lungs, Normal: Extremities, Normal: Abdomen, Normal: Skin and Normal: Neurological Plan Diagnosis/Plan: Unchanged I have reviewed the history and physical and performed a pertinent physical examination on my patient. No changes have occurred unless specified. Time Spent With Patient Time: Total time managing care of this patient today ____ minutes.
--- NOTE | 2024-09-25 11:39 | HO.OPN-COLON ---
Colonoscopy Operative Note Operative Note Date of Service: 09/25/24 Narrative: Operative Information Procedure Description: Colonoscopy Indication: screening Anesthesia: MAC COLONOSCOPY Instrument: Olympus variable stiffness pediatric scope 190L Colonoscopy Monitoring: Vital signs and clinical assessment, continuous EKG monitoring, Pulse oximetry, Carbon Dioxide monitoring and blood pressure monitoring were done throughout the procedure. Colon withdrawal time was 15 minutes. Procedure: The patient was placed in the left lateral decubitis position and pre-procedure medications were administered. After a digital rectal examination of the ano-rectum, the video colonoscope was inserted into the rectum and advanced through the colon to the cecum/TI. The colonoscope was slowly withdrawn in a retrograde panoramic fashion and the colon mucosa was carefully examined including a retroflexed view of the rectum. Findings and interventions are described below. Procedure Difficulty: difficult due to looping, preesure applied Findings: Terminal Ileum-not intubated Cecum: x 2 sessile appearing polyps 6-8 mm removed with cold snare ileocecal vlave appeared prominent, bx taken with cold forceps Ascending Colon: moderate diverticulosis Transverse Colon -normal Descending Colon: severe diverticulosis 10 mm sessile polyp removed with cold snare Sigmoid Colon: severe diverticulosis Rectum: Retroflexion with small internal hemorrhoids seen, grade I Anorectum - normal Intervention: cold snare and cold forceps biopsy Colon preparation: [place] Bowel Preparation Scale Right colon; 1-2 Transverse colon: 2- Left colon; 2 (0 = Unprepared colon segment with mucosa not seen due to solid stool that cannot be cleared. 1 = Portion of mucosa of the colon segment seen, but other areas of the colon segment not well seen due to staining, residual stool and/or opaque liquid. 2 = Minor amount of residual staining, small fragments of stool and/or opaque liquid, but mucosa of colon segment seen well. 3 = Entire mucosa of colon segment seen well with no residual staining, small fragments of stool or opaque liquid) Impression and Post Procedure Diagnosis: diverticulosis colon polyps internal hemorrhoids Plan: High fiber diet leaflet Avoid straining at stool, epsom salts and sitz bath, anusol supps or cream Repeat Colonoscopy in 6-12 months due to fair prep on right and polyps or earlier if clinically indicated --next time adult scope Above findings were reviewed with the patient and relevant handouts were provided if indicated.
[2024-09-25 11:43] VITALS: BP 97/62; PULSE 80; RESP 16; TEMP 36.1; O2SAT 97
[2024-09-25 11:58] VITALS: BP 132/87; PULSE 90; RESP 16; TEMP 36.3; O2SAT 98
== END 2024-09-25 12:23 | disposition home or self-care (01) ==
PROVIDERS: PCP Registered Nurse; Visit Provider Internal Medicine Gastroenterology
PROC: 0DJD8ZZ Inspection of Lower Intestinal Tract, Via Natural or Artificial Opening Endoscopic (ICD-10-PCS; CPT 45378; principal; 2024-09-25 11:50)
DX: Z12.11 Encounter for screening for malignant neoplasm of colon (principal); D12.4 Benign neoplasm of descending colon; K57.30 Diverticulosis of large intestine without perforation or abscess without bleeding; K64.0 First degree hemorrhoids; E11.9 Type 2 diabetes mellitus without complications; E78.00 Pure hypercholesterolemia, unspecified
CPT/HCPCS: 45385; 45380; 82947; 88305; J2003; J2704

== ENCOUNTER → 2024-09-25 09:18 | Outpatient (BNV) | payer MEDICARE, MEDICAID, SELFPAY | PROVIDERS: PCP Registered Nurse; Visit Provider Internal Medicine Gastroenterology | DX: Z12.11 Encounter for screening for malignant neoplasm of colon (principal); D12.4 Benign neoplasm of descending colon; K63.5 Polyp of colon; K57.90 Diverticulosis of intestine, part unspecified, without perforation or abscess without bleeding; K64.0 First degree hemorrhoids | CPT/HCPCS: 45380; 45385 ==

== ENCOUNTER 2024-12-10 09:37 | Outpatient (REF) | payer MEDICARE, MEDICAID, SELFPAY ==
--- OUTSIDE RECORDS SUMMARY | 2024-12-10 10:29 | XMS_ITS | Encounter Summary ---
Author Organization [employer] Address [address] [facility] [address] [place] [address] Care Team Providers Care Service Dog Trainer Name Role Phone [facility] Primary Care Provider [phone] Reason for Visit * Reason Comments Med Refill Encounter Details Date Type Department Care Team ([facility] st Contact Info) Description 09/05/2024 Refill [facility] [address] [place], [place] [id number] [facility] [address] [place] [address] Social History Tobacco Use Types Packs/Day Years Used Date Smoking Tobacco: Former Cigarettes Smokeless Tobacco: Never Comments:5 pack year hx Alcohol Use Standard Drinks/Week Comments Yes 0 (1 standard drink = 0.6 oz pur e alcohol) occassionally Depression Answer Date Recorded Patient Health Questionnaire-9 Score 0 04/04/2023 Housing Stability Answer Date Recorded What is your housing situation today? I have wali gómez 06/11/[address] you li ve. Do you have problems with any of the following? None of the above 06/11/2024 Food Insecurity Answer Date Recorded Within the past 12 months, y ou worried that your food would run out before you got money to buy more: Never True 06/11/2024 Within the past 12 months,th e food you bought just didn't last and you didn't have enough money to get more: Never True 06/2024 Transportation Answer Date Recorded In the past 12 months, has l ack of transportation kept you from medical appts, meetings, work or from getting things needed for daily living? No 06/11/2024 Utilities Answer Date Recorded In the past 12 months, has t he electric, gas, oil or water company threatened to shut off services in your home? No 06/11/2024 Depression Answer Date Recorded Patient Health Questionnaire-2 Score 0 04/04/2023 Internet Access Answer Date Recorded Internet Access Q1 Yes 06/11/2024 Internet Access Q2 Not on file 06/11/2024 Sex and Gender Information Value Date Recorded Sex Assigned at Male 08/02/2022 10:19 AM EDT Legal Sex Male 10:19 AM EDT Gender Identity Male 08/02/2022 10:19 AM EDT Sexual Orientation Straight 08/02/2022 10 :19 AM EDT documented as of this encounter Plan of Treatment Upcoming Encounters Date Type Department Care Team (Late st Contact Info) Description 12/12/2024 9:00 AM EDT Office Visit [facility] [address] [place] [address] Julien, Yeny, OD [address] [place] [address] documented as of this encounter Visit Diagnoses Not on filedocumented in this encounter Additional Health Concerns Assessment Noted Time PHQ-9 Depression Total Score: 0 04/04/20 23 9:07 AM EDT documented as of this encounter Care Teams Service Dog Trainer Relationship Specialty Start Date End Date Marcelina Maldonado FNP [address] [place] [address] PCP - General Family Medicine 02/24/22 documented as of this encounter
--- OUTSIDE RECORDS SUMMARY | 2024-12-10 10:29 | XMS_ITS | Encounter Summary ---
Author Organization [employer] Address [address] [facility] [address] [place] [address] Care Team Providers Care Hot Wort Settler Name Role Phone [facility] Primary Care Provider [phone] Reason for Visit * Reason Comments Pre-visit Planning SDOH negative, Tobac co screening negative. Encounter Details Date Type Department Care Team ([facility] st Contact Info) Description 12/03/2024 [facility] [address] [place], [place] [phone] [facility] [address] [place] [address] Pre-visit Planning (SDOH negative, Tobacco screening negative. ) Social History Tobacco Use Types Packs/Day Years Used Date Smoking Tobacco: Former Cigarettes Smokeless Tobacco: Never Comments:5 pack year hx Alcohol Use Standard Drinks/Week Comments Yes 0 (1 standard drink = 0.6 oz pur e alcohol) occassionally Depression Answer Date Recorded Patient Health Questionnaire-9 Score 0 09/10/2024 Patient Health Questionnaire-9 Score 0 09/10/2024 Last PHQ-9: Questionnaire Data Not on file 1 11/11/2023 Housing Stability Answer Date Recorded What is [...] Date Recorded Patient Health Questionnaire-2 Score 0 09/10/2024 Internet Access Answer Date Recorded Internet Access Q1 Yes 06/11/2024 Internet Access Q2 Not on file 06/11/2024 Sex and Gender Information Value Date Recorded Sex Assigned at Male 08/02/2022 10:19 AM EDT Legal Sex Male 10:19 AM EDT Gender Identity Male 08/02/2022 10:19 AM EDT Sexual Orientation Straight 08/02/2022 10 :19 AM EDT documented as of this encounter Progress Notes * Carmen Walker - 12/03/2024 1:21 PM EST EILEEN Rincon placed successful outbound call to patient for pre-visit planning. Patient name and confirmed. Patient confirms appt date and time, and has transportation arrangements. Biggest concern for appointment at this time is no concerns. Appropriate screenings completed in anticipation ofappointment. documented in this encounter Plan of Treatment Upcoming Encounters Date Type Department Care Team (Late st Contact Info) Description 12/12/2024 9:00 AM EDT Office Visit [facility] [address] [place] [address] Julien, Yeny, OD [address] [place] [address] documented as of this encounter Visit Diagnoses Not on filedocumented in this encounter Additional Health Concerns Assessment Noted Time PHQ-9 Depression Total Score: 0 09/10/20 24 9:03 AM EST documented as of this encounter Care Teams Hot Wort Settler Relationship Specialty Start Date End Date Marcelina Maldonado FNP [address] [place] [address] PCP - General Family Medicine 02/24/22 documented as of this encounter
--- OUTSIDE RECORDS SUMMARY | 2024-12-10 10:29 | XMS_ITS | Clinical Summary ---
Author Organization [employer] Address [address] [facility] [address] [place] [address] Care Team Providers Care Multimedia Services Coordinator Name Role Phone Marcelina Maldonado [facility] Primary Care Provider Allergies No known active allergies Medications Diclofenac Sodium 1 % gel Apply 2 g topically every 6 (six) hours. 021 Active ergocalciferol (Vitamin D-2) 1.25 MG (06764 UT) capsule take 1 capsule by oral route every week 022 Active TRUEplus Lancets 33G miscIndications: Type 2 diabetes mellitus with other specified complication, unspecified whether retirement insulin use ([facility]) TEST BLOOD SUGAR FOUR TIMES DAILY 100 each 11 023 Active Blood Glucose Monitoring Suppl (GNP Easy Touch Glucose Meter) deviceIndication s:Type 2 diabetes mellitus with hyperglycemia, without long-term current use of insulin ([facility]) Use as directed to check blood sugar four times daily 1 each 023 Active naproxen (Naprosyn) 500 MG tabletIndication s:Varicose veins of both lower extremities with inflammation TAKE 1 TABLET BY MOUTH IN THE MORNING AND AT BEDTIME NEEDED FOR MILD PAIN 60 tablet 023 Active atorvastatin (Lipitor) 80 MG tabletIndication s:Mixed hyperlipidemia TAKE 1 TABLET BY MOUTH ONCE DAILY 90 tablet 1 024 Active lisinopril 10 MG tabletIndication s:Benign essential hypertension TAKE 1 TABLET BY MOUTH ONCE DAILY 90 tablet 1 024 Active Blood Pressure kitIndications:B enign essential hypertension Use as directed 1 kit 024 Active glucose blood (FREESTYLE LITE) test stripIndications :Type 2 diabetes mellitus with hyperglycemia, without long-term current use of insulin ([facility]) USE DIRECTED TO TEST BLOOD SUGAR FOUR TIMES DAILY 100 strip 11 024 Active Alcohol Swabs (Alcohol Prep) padsIndications: Type 2 diabetes mellitus with hyperglycemia, without long-term current use of insulin ([facility]) Use one pad each to prep skin prior to injection as directed 100 each 11 024 Active acetaminophen (Tylenol) 500 MG tabletIndication s:Pain take 1-2 tablet by oral route every 6-8 hours as needed 60 tablet 024 Active glucose blood (FREESTYLE LITE) test stripIndications :Type 2 diabetes mellitus with other specified complication, unspecified whether retirement insulin use ([facility]),Type 2 diabetes mellitus with hyperglycemia, without long-term current use of insulin ([facility]) USE DIRECTED TO TEST BLOOD SUGAR ONCE DAILY 100 each 024 Active TRUEplus Lancets 33G miscIndications: Type 2 diabetes mellitus with other specified complication, 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 Do not crush or chew. 90 capsule 1 024 2024 Active hydroCHLOROthiaz ros (HYDRODiuril) 25 MG tabletIndication s:Benign essential hypertension TAKE 1 TABLET BY MOUTH EVERY MORNING 90 tablet 025 Active metFORMIN (Glucophage) 500 MG tablet TAKE 2 TABLETS BY MOUTH TWICE DAILY 360 tablet 1 025 Active Dulaglutide 3 MG/0.5ML solution auto-injectorInd ications:Type 2 diabetes mellitus with hyperglycemia, without long-term current use of insulin ([facility]) Inject 3 mg under the skin 1 (one) time per week. 2 mL 025 2025 Active gabapentin (Neurontin) 100 MG capsuleIndicatio ns:Diabetic polyneuropathy associated with type 2 diabetes mellitus ([facility]) Take 1 capsule by oral route nightly. May self increase up to 3 capsules (300mg) if needed for symptom relief 120 capsule 11 025 Active Trulicity 1.5 MG/0.5ML solution pen-injectorIndi cations:Type 2 diabetes mellitus with hyperglycemia, without long-term current use of insulin (CMS/HCC) INJECT ONE PEN (=1.5MG) SUBCUTANEOUSLY ONCE A WEEK DIRECTED 2 mL 11 024 2024 Discontinued(R eorder (will not trigger notification to Pharmacy)) metFORMIN (Glucophage) 500 MG tablet TAKE 2 TABLETS BY MOUTH TWICE DAILY 360 tablet 024 2024 Discontinued Dulaglutide (Trulicity) 1.5 MG/0.5ML solution auto-injectorInd ications:Type 2 diabetes mellitus with hyperglycemia, without long-term current use of insulin (CMS/HCC) Inject 0.5 mL (1.5 mg) under the skin 1 (one) time per week. 2 mL 11 024 2024 Discontinued Active Problems Problem Noted Date Diagnosed Date Vascular insufficiency 03/03/2023 Overview (03/03/2023): - Followed by [facility] vascular for vascular insufficiency. 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 Likely s/t to ETOH Healthcare maintenance 09/15/2022 Overview (06/11/2024): CRC: Needs to reschedule=pt will call PSA: 03/2023 WNL Vision: [facility] 08/2023 Dental: Pt to establish at [facility] AAA: Ordered today LDLCT: <10 pack year hx Assessment & Plan (03/10/2023 6:02 AM EDT): ?? We re refer to GI for CRC screening ?? Accepts repeat PSA screening ?? Encouraged shingles vaccine in pharmacy Varicose veins of lower extremity 10/05/2021 Benign essential hypertension 07/07/2015 Overview (04/04/2023): ?? Lisinopril 10mg ?? Hydrochlorothiazide 25mg ?? Well controlled Maintenance: BMP: 03/2023 Lipid Panel:03/2023 ASCVD Risk: LDL < 70 EKG: Obtain baseline at f/u - Aerobic exercise to reduce BP. Initial goal of 30 min walk 3-5x/week. Increase as tolerated. - low-sodium diet (goal: <2g/day) and heart healthy diet such as DASH to reduce BP and prevent ASCVD. - Home BP monitoring 1-2 x day with goal of <140/90. - Seek immediate medical attention for chest pain, palpitations, SOB, syncope, or sudden changes in mental status. - Do not change or discontinue current prescriptions without first consulting health care provider Assessment & Plan (04/04/2023 9:55 AM EDT): ?? Well controlled ?? Continue current regimen Assessment & Plan (03/10/2023 6:00 AM EDT): ?? Well controlled ?? Continue current regimen ?? Complete labs Gastroesophageal reflux disease without esophagi tis 07/07/2015 Mixed hyperlipidemia 07/07/2015 Overview (03/03/2023): ?? Atorvastatin 80mg daily Type 2 diabetes mellitus 07/07/2015 Overview (06/11/2024): Metformin 1000mg b.i.d Trulicity 1.5mg Foot Exam: 06/2022, Risk 1. Followed by podiatry Eye Exam: Followed by [facility] ASCVD: LDL < 70 Statin: Yes ASA: No SIMEON/ARB: Yes Encouraged regular aerobic exercise for improved glycemic control Encouraged daily foot checks Encouraged lean protein snacks and to avoid foods high in sugar and simple carbohydrates Treatment Goals: A1c goal: <7% FBG goal: <130 2 hour post prandial goal: <180 Assessment & Plan (04/04/2023 9:55 AM EDT): Lab Results Component Value Date HGBA1C 9.9 (A) 03/03/2023 ?? INCREASE trulicity to 1.5mg sq Assessment & Plan (03/10/2023 6:03 AM EDT): Lab Results Component Value Date HGBA1C 9.9 (A) 03/03/2023 ?? START trulicty .75mg Reviewed administration, risks, side effects ?? Complete labs Resolved Problems Problem Noted Date Diagnosed Date Resolved Date Renovascular hypertension 07/07/2015 Overview (03/03/2023): ?? HCTZ 25mg and Lisinopril 10mg ?? Previously seen by cardiology for palpitations 2017, now resolved Maintenance: BMP: Lipid Panel: ASCVD Risk: Calculate pending updated labs EKG: Obtain baseline at f/u - Aerobic exercise to reduce BP. Initial goal of 30 min walk 3-5x/week. Increase as tolerated. - low-sodium diet (goal: <2g/day) and heart healthy diet such as DASH to reduce BP and prevent ASCVD. - Home BP monitoring 1-2 x day with goal of <140/90. - Seek immediate medical attention for chest pain, palpitations, SOB, syncope, or sudden changes in mental status. - Do not change or discontinue current prescriptions without first consulting health care provider Encounters Date Type Department Care Team Description 12/10/2024 9:00 AM EDT Office Visit [facility] [address] [place] [phone] Marcelina Maldonado FNP Diabetic polyneuropathy associated with type 2 diabetes mellitus (CMS/HCC) (Primary Dx); Type 2 diabetes mellitus with hyperglycemia, without long-term current use of insulin ([facility]); Dietary counseling; Exercise counseling; Class 1 obesity due to excess calories with serious comorbidity and body mass index (BMI) of 34.0 to 34.9 in adult; Nail dystrophy; Neoplasm of uncertain behavior 12/10/2024 Travel 12/03/2024 Patient Outreach [facility] [address] [place] [address] Marcelina Maldonado FNP Pre-visit Planning (SDOH negative, Tobacco screening negative. ) 11/26/2024 Telephone [facility] [address] [place] [address] Marcelina Maldonado FNP 11/13/2024 Refill [facility] [address] [place] [address] Roxi Bhardwaj DO 11/06/2024 Refill [facility] [address] [place] [address] Marcelina Maldonado, MARKETING SERVICES REP Benign essential hypertension 09/25/2024 Orders Only GENERIC EXTERNAL DATA DEPARTMENT Provider, Generic External Data from Last 3 Months Immunizations Name Administration Dates Next Due Hep B, adult 08/05/2022,07/06/2019,06/06/2019 Influenza High-dose Quadriva lent Preservative Free 07/21/2023 Influenza Injectable Quadriv alant Preservative Free IIV4 MDCK 08/05/2022,08/03/2021 Influenza injectable quadriv alent IIV4 with preservative 11/03/2017,07/07/2015 Influenza injectable quadriv alent preservative free 07/06/2019,09/20/2016,12/18/2014 Influenza, High Dose Seasona l, Preservative Free 09/10/2024 Influenza, IIV3, injectable 06/02/2010 Influenza, Split (incl. ricardo fied surface antigen) 08/21/2012 Moderna Covid-19 Vaccine 12+ 05/06/2022, 09/17/2021,02/02/2021,01/05 Moderna Covid-19 Vaccine 6+ Bivalent 09/09/2022 Pfizer Covid-19 Vaccine 12+ 09/10/2024, 3 Pneumococcal Conjugate PCV 20 08/05/2022 Pneumococcal Polysaccharide PPSV23 09/08/2010 TD (adult), 2 Lf tetanus tox oid, preservative free, adsorbed 02/04/2010 Tdap 06/06/2019 Zoster, Recombinant 08/05/2022,06/02/2022 Zoster, live 08/05/2022 Family History Medical History Relation Name Comments Diabetes Brother Diabetes Mother Relation Name Status Comments Brother Mother Social History Tobacco Use Types Packs/Day Years Used Date Smoking Tobacco: Former Cigarettes Smokeless Tobacco: Never Tobacco Cessation:Counseling Given: Not Answered Comments:5 pack year hx Alcohol Use Standard Drinks/Week Comments Yes 0 (1 standard drink = 0.6 oz pur e alcohol) occassionally Depression Answer Date Recorded Patient Health Questionnaire-9 Score 0 12/10/2024 Patient Health Questionnaire-9 Score 0 12/10/2024 Last PHQ-9: Questionnaire Data Not on file 0 12/10/2024 Housing Stability Answer Date Recorded What is [...] Date Recorded Patient Health Questionnaire-2 Score 0 12/10/2024 Internet Access Answer Date Recorded Internet Access Q1 Yes 06/11/2024 Internet Access Q2 Not on file 06/11/2024 Sex and Gender Information Value Date Recorded Sex Assigned at Male 08/02/2022 10:19 AM EDT Legal Sex Male 10:19 AM EDT Gender Identity Male 08/02/2022 10:19 AM EDT Sexual Orientation Straight 08/02/2022 10 :19 AM EDT Last Filed Vital Signs Vital Sign Reading Time Taken Comments Blood Pressure 136/88 12/10/2024 8:59 AM EDT Pulse 100 12/10/2024 8:59 AM EDT Temperature 36.6 ??C (97.8 ??F) 12/10/2024 8:59 AM ED T Respiratory Rate 20 12/10/2024 8:59 AM EDT Oxygen Saturation 98% 12/10/2024 8:59 AM EDT Inhaled Oxygen Concentration - - Weight 97.2 kg (214 lb 3.2 oz) 12/10/2024 8:59 A M EDT Height 170.2 cm (5' 7 ) 12/10/2024 8:59 AM EDT Body Mass Index 33.55 12/10/2024 8:59 AM EDT Plan of Treatment Upcoming Encounters Date Type Department Care Team (Late st Contact Info) Description 12/12/2024 9:00 AM EDT Office Visit [facility] [address] [place] [address] Yeny Victoria, OD [address] [place] [address] Health Maintenance Due Date Last Done Comments CT Colonography 1955 Colonoscopy 1955 Colorectal Cancer Screening 1955 FIT DNA/Cologuard 1955 FIT 1955 FOBT 1955 Sigmoidoscopy 1955 Zoster Vaccines (3 of 3) 09/30/2022 022, 08/05/2022, 06/02/2022 Diabetes: Foot Exam 12/11/2024 12/12/2023, Diabetes: Urine Protein Screening 12/11/2024 12/12/2023, 05/06/2022, 04/21/2021 Lipid Panel 12/11/2024 12/12/2023, 03/04, 05/06/2022, Additional history exists Diabetes: Hemoglobin A1C 03/12/2025 025, 09/10/2024, 06/11/2024, Additional history exists Eye Exam 06/17/2025 06/17/2023, 06/03, 06/17/2023, Additional history exists Alcohol/Substance Use Screening 09/10/2025 09/10/2024 SDOH Screening 12/03/2025 12/03/2024 Depression Screening 12/10/2025 12/10/2024, 12/11/19 Tobacco Screening 12/10/2025 12/10/2024 RSV Patients and Patients Aged 60 years or older (1 - 1-dose 75+ series) 2032 DTaP/Tdap/Td Vaccines (3 - Td or Tdap) 08/01/2034 08/01/2024, 06/06/2019, 02/04/2010, Additional history exists Hepatitis C Screening Completed 05/06/2022 Hepatitis B Vaccines Completed 08/05/2022, 07/06/2019, 06/06/2019 Pneumococcal Vaccine: 50+ Years Completed 08/05/2022, 09/08/2010 COVID-19 Vaccine Completed 09/10/2024, , 09/09/2022, Additional history exists Influenza Vaccine Completed 09/10/2024, , 08/05/2022, Additional history exists HIB Vaccines Aged Out No longer eligi ble based on patient's age to complete this topic HPV Vaccines Aged Out No longer eligi ble based on patient's age to complete this topic Hepatitis A Vaccines Aged Out No long er eligible based on patient's age to complete this topic IPV Vaccines Aged Out No longer eligi ble based on patient's age to complete this topic Meningococcal Vaccine Aged Out No beryl jatinder eligible based on patient's age to complete this topic RSV under 20 months Aged Out No longe r eligible based on patient's age to complete this topic Rotavirus Vaccines Aged Out No longer eligible based on patient's age to complete this topic Procedures Procedure Name Priority Date/Time Associated Diagnosis Comments POCT GLUCOSE Routine 12/10/2024 9:11 AM EDT Type 2 diabetes mellitus with hyperglycemia, without long-term current use of insulin (CMS/HCC) POCT GLYCATED HEMOGLOBIN, TOTAL Routine 12/10/2024 9:11 AM EDT Type 2 diabetes mellitus with hyperglycemia, without long-term current use of insulin (CMS/HCC) HEMATOXYLIN AND EOSIN STAIN Routine 09/25/2024 11:28 AM EST GLUCOSE, WHOLE BLOOD Routine 09/25/2024 9:31 AM EST ALBUMIN, RANDOM URINE W/CREATININE Routine 12/12/2023 12:31 PM EDT Type 2 diabetes mellitus with hyperglycemia, without long-term current use of insulin (CMS/HCC) LIPID PANEL, STANDARD Routine 12/12/2023 12:30 PM EDT Type 2 diabetes mellitus with hyperglycemia, without long-term current use of insulin (CMS/HCC) ZZZ HISTORICAL HEPATITIS C AB W/REFL TO HCV RNA, QN, PCR Routine 05/06/2022 2:43 PM EDT from Last 3 Months or Most Recently Relevant to Health Maintenance Results * (ABNORMAL) POCT HGB A1C (12/10/2024 9:11 AM EDT) Pathologist [facility] Hemoglobin A1C 8.2(A) 4.0 - 6.0 % QC Media Lot # [id number] Lot# Expiration Date ,547 Blood 12/10/2024 9:11 AM EDT [facility] POINT OF CARE TEST ENTER/EDIT ORDERABLES Final Result * (ABNORMAL) POCT Glucose (12/10/2024 9:11 AM EDT) [facility] Glucose Blood, POC 210(A) 60 - 200 mg/dL [employer] Lot # [id number] Lot# Expiration Date [id number] Blood Capillary blood specimen / Unknown 12/10/2024 9:11 AM EDT [facility] POINT OF CARE TEST ENTER/EDIT ORDERABLES Final Result * Hematoxylin and Eosin Stain (09/25/2024 11:28 AM EST) 09/25/2024 11:2 8 AM EST 09/25/2024 12:24 PM EST Narrative [facility] - 09/27/2024 2:40 PM EST ----- ------- Name: Estevan Christiansen ? Age/Sex: 68/M ? : 1955 Unit#: [id number] ?? Attend Dr: Forrest Reed MD ?Re09/25/24 ?Status: DEP SDC ? Location: HO.SSS ?Disch: ? ----- ------- SPEC : [id number] ? RECD: 09/25/24-1224 ? STATUS: ??SOUT ? REQ NUM: [id number] ? JANICE: 09/25/24-1128 ? SUBM DR: Forrest Reed MD ? ENTERED: ??09/25/24-1235 ?SP TYPE: Surgical ? OTHR DR: Marcelina Maldonado MARKETING SERVICES REP ? ORDERED: ??HE Stain/9, Gross Micro L4/3 ? Diagnosis ?? A. ??Colon, cecal polyps: ??Colonic mucosa minor crypt distortion, otherwise no specific ?? change; no adenomatous dysplasia seen. ? B. ??Ileocecal valve, biopsy: ??Ileo-colonic mucosa with minor crypt distortion, otherwise ?? no specific change. ? C. ??Colon, descending, polyp: ??Tubular adenoma; negative for high-grade dysplasia and ?? carcinoma. ?Clinical History Pre-Op Dx: ??Screening Post-Op Dx: Diverticulosis, colon polyps, internal hemorrhoids ?Microscopic Description Multiple microscopic sections reviewed. ? Material Received ?? A. Cecal polyps ?? B. Bx ileocecal valve ?? C. Descending colon polyp ? Gross Description Received in three parts. Part A: ??Received in formalin labeled ?cecal polyps are 4 focally hyperemic and congested, flores-pink and flores-red irregular and papular tissue fragments ranging from 0.15- 0.45 cm, submitted in toto in a cassette labeled A. Part B: ??Received in formalin labeled ?bx ileocecal valve? is a 0.25 cm flores-pink irregular tissue fragment, submitted in toto in a cassette labeled B. Part C: ??Received in formalin labeled ?descending colon polyp? are 4 flores and flores-pink irregular tissue fragments ranging from 0.2-0.3 cm, submitted in toto in a cassette labeled C. CEDS ? CONTINUED ON NEXT PAGE ----- ------- Name: Estevan Christiansen ? Age/Sex: 68/M ? : 1955 Unit#: [id number] ?? Attend Dr: Forrest Reed MD ?Re09/25/24 ?Status: DEP SDC ? Location: HO.SSS ?Disch: ? ----- ------- SPEC : [id number] ? RECD: 09/25/24-1224 ? STATUS: ??SOUT ? REQ NUM: [id number] ? JANICE: 09/25/24-1128 ? SUBM DR: Forrest Reed MD ? ENTERED: ??09/25/24-1235 ?SP TYPE: Surgical ? OTHR DR: Marcelina Maldonado [employer]ETING [employer] REP ? ORDERED: ??HE Stain/9, Gross Micro L4/3 ? Copies To: ?? Forrest Reed MD ?? [facility] Gastroenterology Services ?? [address] ?? [place] [address] ?? [phone] ?? Marcelina Maldonado MARKETING SERVICES REP ?? [address] [facility] ?? [place] [address] ?? [phone] ----- ------- Signed (signature on file) [facility] 09/27/24 1440 ? ----- ------- ? END OF REPORT ? us Generic External Data Provider LAB BLOOD ORDERAB LES Final Result Performing Organization Address [facility]/ZIP Co de Phone Number [facility] [address] [place], [place] [phone] * (ABNORMAL) Glucose, Whole Blood (09/25/2024 9:31 AM EST) Glucose, Whole Blood 226(H) 60 - 115 mg/dL [facility] Comment:METER #: [id number] 09/25/2024 9:31 AM EST 09/25/2024 9:36 AM EST us Generic External Data Provider LAB BLOOD ORDERAB LES Final Result Performing Organization Address [facility]/ZIP Co de Phone Number [facility] [address] [place], [place] [phone] * Albumin, Random Urine W/Creatinine (12/12/2023 12:31 PM EDT) Creatinine, Urine 94.98 mg/dL [facility] Microalbumin Urine 8.0 mg/L [facility] Microalbum Creatinine Ratio Ur 8.4 <30 ug/mg cr [facility] Comment:Albumin/Creatinine R atio Reference Ranges: Normal: < 30 ug/mg creatinine Microalbuminuria: 30 - 300 ug/mg creatinineClinical Albuminuria: > 300 ug/mg creatinine Urine 12/12/2023 12:3 1 PM EDT 12/12/2023 1:14 PM EDT [facility] LAB URINE ORDERABLES Final Re sult [facility] [address] [place] [address] [phone] * (ABNORMAL) Lipid Panel, Standard (12/12/2023 12:30 PM EDT) Triglycerides 72 <150 mg/dL [facility] Comment:Desirable Triglyceri de: less than 150 mg/dLBorderline High Triglyceride 150-199 mg/dLHigh Triglyceride: 200-499 mg/dLVery High Triglyceride: greater than or equal to 5OO mg/dL Cholesterol 165 <200 mg/dL [facility] Comment:Desirable Cholestero l: less than 200 mg/dLBorderline High Cholesterol: 200-239 mg/dLHigh Cholesterol: greater than 239 mg/dL LDL Cholesterol Calculated 105(H) <100 mg/dL [facility] Comment:Desirable LDL: less than 100 mg/dLNear Optimal/Above Optimal LDL: 110- 129 mg/dLBorderline High LDL: 130-159 mg/dLHigh LDL: 160-189 mg/dLVery High LDL: greater than or equal to 190 mg/dL HDL Cholesterol 46 >40 mg/dL [facility] Comment:Desirable HDL: great er than 40 mg/dL Note: This HDL assay may give artificially low results in patients with liver disease. Blood Venous blood specimen / Unknown 12/12/2023 12:30 PM EDT 12/12/2023 1:02 PM EDT [facility] LAB BLOOD ORDERABLES Final Re sult [facility] [address] [place] [address] [phone] * HEPATITIS C AB W/REFL TO HCV RNA, QN, PCR (05/06/2022 2:43 PM EDT) HEPATITIS C ANTIBODY NON-REACT [facility] NON-REACT [facility] INDEX 0.40 <1.00 [facility] Comment: ?? HCV antibody was non-reactive. There is no laboratory ?? evidence of HCV infection. ?? In most cases, no further action is required. However, if recent HCV exposure is suspected, a test for HCV RNA (test code 99973) is suggested. ?? For additional information please refer to http://education.[employer]/faq/UGV84r9 (This link is being provided for informational/ educational purposes only.) ?? 05/06/2022 2:43 PM EDT [facility] HISTORICAL/NON ORDERABLE LABS Final Result Performing Organization Address [facility] Co de Phone Number [facility] [address] from Last 3 Months or Most Recently Relevant to Health Maintenance Insurance MEDICARE [facility] STANDARD * Guarantor: Estevan Christiansen Account Type Relation to Patient Date of Phone Billing Address Personal/[place] [address] * Guarantor: Estevan Christiansen Account Type Relation to Patient Date of Phone Billing Address Personal/[place] [address] Care Teams Multimedia Services Coordinator Relationship Specialty Start Date End Date Marcelina Maldonado FNP [address] [place] [address] [place] [address] PCP - General Family Medicine 02/24/22
--- OUTSIDE RECORDS SUMMARY | 2024-12-10 10:29 | XMS_ITS | Encounter Summary ---
Author Organization [employer] [facility] Address [address] [place] [address] 7t [place] [address] Care Team Providers Care Processing Manager Name Role Phone Marcelina Maldonado Primary Care Provider [phone] Reason for Referral * Consultation (Routine) - Authorized Specialty Diagnoses / Procedures Referred By Orestes agrawal Referred To Contact Family Medicine Diagnoses Neoplasm of uncertain behavior Marcelina Maldonado FNP [address] [place], [place] Phone: tel: fax: Referral ID Status Reason Start Date Expiration Date Visits Requested Visits Authorized [id number] Authorized Specialty Services Required 12/10/2024 12/10/2025 1 1 * Consultation (Routine) - Pending Review Specialty Diagnoses / Procedures Referred By Orestes agrawal Referred To Contact Podiatry Diagnoses Type 2 diabetes mellitus with hyperglycemia, without long-term current use of insulin ([facility]) Nail dystrophy Marcelina Maldonado FNP [address], [place] Phone: tel: fax: Referral ID Status Reason Start Date Expiration Date Visits Requested Visits Authorized [id number] Pending Review Specialty Services Required 12/10/2024 12/10/2025 1 1 * Medications - Closed Specialty Diagnoses / Procedures Referred By Orestes agrawal Referred To Contact Diagnoses Type 2 diabetes mellitus with hyperglycemia, without long-term current use of insulin ([facility]/HCC) Marcelina Maldonado FNP [address] [place], [place] Phone: tel: fax: Referral ID Status Reason Start Date Expiration Date Visits Re quested Visits Authorized [id number] Closed 1 1 Reason for Visit * Reason Comments Diabetes Encounter Details Date Type Department Care Team (Latest Contact Info) Description 12/10/2024 9:00 AM EDT Office Visit [facility] MEDICINE [address] [facility] [place] [address] Marcelina Maldonado FNP [address] [place] [address] Diabetic polyneuropathy associated with type 2 diabetes mellitus (CMS/HCC) (Primary Dx); Type 2 diabetes mellitus with hyperglycemia, without long-term current use of insulin (CMS/HCC); Dietary counseling; Exercise counseling; Class 1 obesity due to excess calories with serious comorbidity and body mass index (BMI) of 34.0 to 34.9 in adult; Nail dystrophy; Neoplasm of uncertain behavior Social History Tobacco Use Types Packs/Day Years [...] AM EDT documented as of this encounter Last Filed Vital Signs Vital Sign Reading [...] Mass Index 33.55 12/10/2024 8:59 AM EDT documented in this encounter Plan of Treatment Upcoming Encounters Date Type Department Care Team (Late st Contact Info) Description 12/12/2024 9:00 AM EDT Office Visit [facility] OPTOMETRY [address] [place] [address] Julien, Yeny, OD [address] [place] [address] Scheduled Orders Name Type Priority Associated Diagnoses Orde r Schedule Albumin, Random Urine W/Creatinine Lab Routine Type 2 diabetes mellitus with hyperglycemia, without long-term current use of insulin ([facility]) Expected: 12/10/2024 (Approximate), Expires: 12/10/2025 Comprehensive Metabolic Panel Lab Routine Type 2 diabetes mellitus with hyperglycemia, without long-term current use of insulin ([facility]) Expected: 12/10/2024 (Approximate), Expires: 12/10/2025 Lipid Panel, Standard Lab Routine Type 2 diabetes mellitus with hyperglycemia, without long-term current use of insulin ([facility]) Expected: 12/10/2024 (Approximate), Expires: 12/10/2025 Vitamin B12/Folate, Serum Panel Lab Routine Diabetic polyneuropathy associated with type 2 diabetes mellitus ([facility]) Expected: 12/10/2024, Expires: 12/10/2025 Scheduled Referrals Name Type Priority Associated Diagnoses Orde r Schedule Referral to Podiatry Outpatient Referral Routine Type 2 diabetes mellitus with hyperglycemia, without long-term current use of insulin ([facility]) Nail dystrophy Expected: 12/10/2024 (Approximate), Expires: 12/10/2025 Referral to [facility] Derm Skin Adult Outpatient Referral Routine Neoplasm of uncertain behavior Expected: 12/10/2024 (Approximate), Expires: 12/10/2025 documented as of this encounter Procedures Procedure Name Priority Date/Time Associated Diagnosis Comments POCT GLYCATED HEMOGLOBIN, TOTAL Routine 12/10/2024 9:11 AM EDT Type 2 diabetes mellitus with hyperglycemia, without long-term current use of insulin ([facility]) POCT GLUCOSE Routine 12/10/2024 9:11 AM EDT Type 2 diabetes mellitus with hyperglycemia, without long-term current use of insulin ([facility]) documented in this encounter Results * (ABNORMAL) POCT Glucose (12/10/2024 9:11 AM EDT) [facility] Glucose Blood, POC 210(A) 60 - 200 mg/dL QC Media Lot # [id number] Lot# Expiration Date 4742 Blood Capillary blood specimen / Unknown 12/10/2024 9:11 AM EDT [facility] SHAREPOINT APPLICATION ARCHITECT POINT OF CARE TEST ENTER/EDIT ORDERABLES Final Result * (ABNORMAL) POCT HGB A1C (12/10/2024 9:11 AM EDT) Hemoglobin A1C 8.2(A) 4.0 - 6.0 % QC Media Lot # [id number] Lot# Expiration Date ,456 Blood 12/10/2024 9:11 AM EDT [facility] POINT OF CARE TEST ENTER/EDIT ORDERABLES Final Result documented in this encounter Visit Diagnoses Diagnosis Diabetic polyneuropathy associated with type 2 diabetes mellitus ([facility]/HCC)- Primary Type 2 diabetes mellitus with hyperglycemia, without long-term current use of insulin ([facility]) Dietary counseling Dietary surveillance and counseling Exercise counseling Class 1 obesity due to excess calories with serious comorbidity and body mass index (BMI) of 34.0 to 34.9 in adult Nail dystrophy Other specified disease of nail 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
--- OUTSIDE RECORDS SUMMARY | 2024-12-10 10:29 | XMS_ITS | Encounter Summary ---
Author Organization [email or web address] Address [address] [facility] 7t [place] [address] Care Team Providers Care Medicaid Billing Clerk Name Role Phone Marcelina Maldonado [facility] Primary Care Provider [phone] Encounter Details Date Type Department Care Team (Latest Contact Info) Description 12/10/2024 Travel Social History Tobacco Use Types Packs/Day Years [...] Description 12/12/2024 9:00 AM EDT Office Visit [facility] OPTOMETRY [address] [place] [address] Yeny Victoria, OD [address] [place] [address] documented as of this encounter Visit Diagnoses Not on filedocumented in this encounter Additional Health Concerns Assessment Noted Time PHQ-9 Depression Total Score: 0 12/11/19 25 9:11 AM EDT documented as of this encounter Care Teams Medicaid Billing Clerk Relationship Specialty Start Date End Date Marcelina Maldonado FNP [address] [place] [address] PCP - General Family Medicine 02/24/22 documented as of this encounter
--- OUTSIDE RECORDS SUMMARY | 2024-12-10 10:29 | XMS_ITS | Encounter Summary ---
Author Organization [employer] Address [address] [facility] 7t [place] [address] Care Team Providers Care Framework Developer Name Role Phone Marcelina Maldonado WELDING MACHINE FEEDER Primary Care Provider [phone] Reason for Visit * Reason Comments Med Refill Encounter Details Date Type Department Care Team ([facility] st Contact Info) Description 09/02/2023 Refill [facility] MEDICINE [address] [place], [place] [phone] Dez French MD [address] [place], [place] [phone] Social History Tobacco Use Types Packs/Day Years Used Date Smoking Tobacco: Former Cigarettes Smokeless Tobacco: Never Alcohol Use Standard Drinks/Week Comments Yes 0 (1 standard drink = 0.6 oz pur e alcohol) occassionally Depression Answer Date Recorded Patient Health Questionnaire-9 Score 0 04/04/2023 Housing Stability Answer Date Recorded What is your housing situation today? I have wali gómez 07/21/[address] you li ve. Do you have problems with any of the following? None of the above 07/21/2023 Food Insecurity Answer Date Recorded Within the past 12 months, y ou worried that your food would run out before you got money to buy more: Sometimes True 2022 Within the past 12 months,th e food you bought just didn't last and you didn't have enough money to get more: Sometimes True 07/21/2023 Transportation Answer Date Recorded In the past 12 months, has l ack of transportation kept you from medical appts, meetings, work or from getting things needed for daily living? No 07/21/2023 Utilities Answer Date Recorded In the past 12 months, has t he electric, gas, oil or water company threatened to shut off services in your home? No 07/21/2023 Depression Answer Date Recorded Patient Health Questionnaire-2 Score 0 04/04/2023 Sex and Gender Information Value Date Recorded Sex Assigned at Male 08/02/2022 10:19 AM EDT Legal Sex Male 10:19 AM EDT Gender Identity Male 08/02/2022 10:19 AM EDT Sexual Orientation Straight 08/02/2022 10 :19 AM EDT documented as of this encounter Plan of Treatment Upcoming Encounters Date Type Department Care Team (Late st Contact Info) Description 12/12/2024 9:00 AM EDT Office Visit [facility] OPTOMETRY [address] [place], [place] [phone] JulienYeny tapia, OD [address] [place] [address] documented as of this encounter Visit Diagnoses Not on filedocumented in this encounter Additional Health Concerns Assessment Noted Time PHQ-9 Depression Total Score: 0 04/04/20 23 9:07 AM EDT documented as of this encounter Care Teams Framework Developer Relationship Specialty Start Date End Date Marcelina Maldonado FNP [address] [place] [address] PCP - General Family Medicine 02/24/22 documented as of this encounter
--- OUTSIDE RECORDS SUMMARY | 2024-12-10 10:30 | XMS_ITS | Encounter Summary ---
Author Organization [employer] Address [address] [facility] 7t [place] [address] Care Team Providers Care Recruiting Operations Consultant Name Role Phone [facility] Primary Care Provider [phone] Reason for Visit * Reason Comments Med Refill Encounter Details Date Type Department Care Team ([facility] st Contact Info) Description 09/02/2023 Refill [facility] MEDICINE [address] [place], [place] [phone] [facility] [address] [place] [address] Social History Tobacco Use Types Packs/Day Years [...] Description 12/12/2024 9:00 AM EDT Office Visit [facility] OPTOMETRY [address] [place], [place] [phone] JulienYeny tapia, OD [address] [place] [address] documented as of this encounter Visit Diagnoses Not on filedocumented in this encounter Additional Health Concerns Assessment Noted Time PHQ-9 Depression Total Score: 0 04/04/20 23 9:07 AM EDT documented as of this encounter Care Teams Recruiting Operations Consultant Relationship Specialty Start Date End Date Marcelina Maldonado FNP [address] [place] [address] PCP - General Family Medicine 02/24/22 documented as of this encounter
--- OUTSIDE RECORDS SUMMARY | 2024-12-10 10:30 | XMS_ITS | Encounter Summary ---
Author Organization [employer] Address [address] [facility] 7t [place] [address] Care Team Providers Care Ore Crusher Name Role Phone [facility] Primary Care Provider [phone] Encounter Details Date Type Department Care Team ([facility] st Contact Info) Description 11/26/[address] [facility] MEDICINE [address] [place], [place] [phone] [facility] [address] [place] [address] Social History Tobacco Use Types Packs/Day Years [...] AM EDT documented as of this encounter Miscellaneous Notes * Telephone Encounter - Bhavna Hernandes - 11/26/2024 10:38 AM EST Placed outbound call to the patient to schedule Medicare Annual Wellness Visit. No answer at this time. Patient's name and were not confirmed. Left detailed message educating patient on Annual Wellness Visits. Provided contact information requesting a call back to [facility] at [phone] in order to schedule an AWV appointment. documented in this encounter Plan of Treatment Upcoming Encounters Date Type Department Care Team (Late st Contact Info) Description 12/12/2024 9:00 AM EDT Office Visit [facility] OPTOMETRY [address] [place] [address] Yeny Victoria, OD [address] [place] [address] documented as of this encounter Visit Diagnoses Not on filedocumented in this encounter Additional Health Concerns Assessment Noted Time PHQ-9 Depression Total Score: 0 09/10/20 9:03 AM EST documented as of this encounter Care Teams Ore Crusher Relationship Specialty Start Date End Date Marcelina Maldonado FNP [address] [place] [address] PCP - General Family Medicine 02/24/22 documented as of this encounter
--- OUTSIDE RECORDS SUMMARY | 2024-12-10 10:30 | XMS_ITS | Encounter Summary ---
Author Organization [email or web address] Address [address] [facility] 7t [place] [address] Care Team Providers Care Methods Specialist Engineer Name Role Phone Marcelina Maldonado API ARCHITECT Primary Care Provider [phone] Reason for Visit * Reason Comments Med Refill Encounter Details Date Type Department Care Team ([facility] st Contact Info) Description 11/13/2024 Refill [facility] MEDICINE [address] [place], [place] [phone] Roxi Bhardwaj DO [address] [place], [place] [phone] Social History Tobacco Use Types Packs/Day Years [...] Description 12/12/2024 9:00 AM EDT Office Visit [facility] OPTOMETRY [address] [place] [address] Julien, Yeny, OD [address] [place] [address] documented as of this encounter Visit Diagnoses Not on filedocumented in this encounter Additional Health Concerns Assessment Noted Time PHQ-9 Depression Total Score: 0 09/10/20 24 9:03 AM EST documented as of this encounter Care Teams Methods Specialist Engineer Relationship Specialty Start Date End Date Marcelina Maldonado FNP [address] [place] [address] PCP - General Family Medicine 02/24/22 documented as of this encounter
[2024-12-10 12:09] LABS: Alanine Aminotransferase 31 U/L (0-40); Albumin Level 4.4 g/dL (3.5-5.0); Alkaline Phosphatase 156 U/L (39-117); Anion Gap 17 (12-20); Aspartate Amino Transferase 35 U/L (5-37); Bilirubin Total 0.6 mg/dL (0.0-1.0); Blood Urea Nitrogen 12 mg/dL (9-16); Calcium 9.2 mg/dL (8.4-10.2); Carbon Dioxide 24 mmol/L (22-29); Chloride 98 mmol/L (96-108); Cholesterol 115 mg/dL (<200); Estimated Glomerular Filt Rate > 60; Glucose Random 178 mg/dL (60-115); HDL Cholesterol 34 mg/dL (>40); LDL Cholesterol Calculated 66 mg/dL (<100); Potassium 3.8 mmol/L (3.3-5.1); Sodium 135 mmol/L (135-145); Total Protein 7.8 g/dL (6.5-8.0); Triglycerides 77 mg/dL (<150)
[2024-12-10 12:54] LABS: Creatinine Urine 222.03 mg/dL; Microalbum/Creatinine Ratio Ur 14.4 ug/mg cr (<30)
[2024-12-10 13:10] LABS: Folate 14.5 ng/mL (> or = 4.0); Vitamin B12 410 pg/mL (200-900)
== END 2024-12-10 09:38 | disposition home or self-care (01) ==
LOC: HO.HHCL 09:37
PROVIDERS: Visit Provider Registered Nurse
DX: E11.65 Type 2 diabetes mellitus with hyperglycemia (principal); E11.42 Type 2 diabetes mellitus with diabetic polyneuropathy
CPT/HCPCS: 36415; 80053; 80061; 82043; 82570; 82607; 82746

== ENCOUNTER 2025-02-21 11:04 | Outpatient (AMB) | payer MEDICARE, MEDICAID, SELFPAY ==
--- NOTE | 2025-02-21 11:13 | MHC.OFFVIS ---
Vital Signs 02/21/25 11:15 Height 5 ft 8 in Weight 211 lb BMI 32.1 Intake Visit Reasons: Left knee pain Intake Note: Estevan is a 69 year old male who presents with complaints of left knee pain. He describes his pain as sharp in nature. He has tried Tylenol which gives him only mild relief. He did have a cortisone injection given into his left knee earlier this year. He got fairly good relief from that injection. He wishes to hold off on surgery if at all possible. Product Marketing Intern Required: Yes Product Marketing Intern Services: Product Marketing Intern Offered & Declined Allergies No Known Allergies Allergy (Verified 02/21/25 11:16) Medication List - Last Reconciled 02/21/25 by Xiang Armendariz MD atorvastatin (Lipitor) 80 mg PO DAILY dulaglutide (Trulicity) mg subcut QWEEK ergocalciferol (vitamin D2) 1,250 mcg PO QWEEK glipizide ER 2.5 mg PO DAILY hydrochlorothiazide 25 mg PO QAM lisinopril 10 mg PO DAILY metformin 500 mg PO BID omeprazole 20 mg PO DAILY PFSH Medical History Hypercholesteremia Diabetes Surgical History (Updated 09/25/24 @ 09:43 by Beronica Leong RN) H/O vein stripping Hx of colonoscopy Family History Brother Cancer Social History Unable to assess alcohol history related to: Unknown Patient Tobacco Use Status: Never used Tobacco Physical Exam Vital Signs: BMI result Body Mass Index 32.1 Const Other: Well-nourished well-developed very friendly male awake alert and oriented x3 in no acute distress Extrem Other: Bilateral lower extremity examination shows good capillary refill, no skin lesions noted, normal sensation light touch Left knee examination shows a minimal effusion, palpable crepitus with range of motion, pain with range of motion, no instability Office Procedures AMB Joint Injection/Aspiration Joint Injection/Aspiration Primary Site: left knee Prep: site was prepped using aseptic technique Injected: 40 mg of, DepoMedrol and 1% plain lidocaine Procedure: The patient tolerated the procedure well Coding 00693 - Large joint Procedure code (CPT) selection complete Assessment & Plan Assessment & Plan (1) Arthritis of left knee: Code(s): M17.12 - Unilateral primary osteoarthritis, left knee Category: Medical (2) Left knee pain: Code(s): M25.562 - Pain in left knee Plan Mr. Christiansen presents with left knee pain due to osteoarthritis. The risks and benefits of a left knee cortisone injection were discussed at length with the patient. The patient wishes to proceed. He tolerated the injection well. He will continue with his activity modifications. He will contact me prior to his follow-up appointment in 3 months should any questions or concerns arise. Feel free to call me at any time should questions regarding his orthopedic management arise. I spent 20 minutes in reviewing the patient's records and imaging studies, seeing the patient and documenting in the medical record. Orders: Orders AMB Joint Injection/Aspiration Today M17.12 - Unilateral primary osteoarthritis, left knee Coding Level of Care Code Est Pt Level 3 (96358) Complex EM visit Add On G2211 Diagnoses Arthritis of left knee M17.12 Left knee pain M25.562 CPT Codes Coding - 13320 Large joint: 90846 - Large joint ([id number])
[2025-02-21 11:15] VITALS: BMI 32.1
--- OUTSIDE RECORDS SUMMARY | 2025-02-21 11:43 | XMS_ITS | Encounter Summary ---
Author Organization [employer] Address [address] [facility] 7t [place] [address] Care Team Providers Care End Frazer Name Role Phone Marcelina Maldonado [facility] Primary Care Provider [phone] Reason for Visit * Reason Comments Med Refill Encounter Details Date Type Department Care Team ([facility] st Contact Info) Description 09/02/2023 Refill [facility] MEDICINE [address] [place], [place] [phone] Dez French MD [address] [place], [place] [phone] Social History Tobacco Use Types Packs/Day Years [...] Care Team (Late st Contact Info) Description 05/03/2025 1:00 PM EDT Office Visit [facility] MEDICINE [address] [place] [address] Gunnar Harper MD [address] [place] [address] 06/14/2025 9:30 AM EDT Office Visit [facility] OPTOMETRY [address] [place] [address] Julien, Yeny, OD [address] [place] [address] documented as of this encounter Visit Diagnoses Not on filedocumented in this encounter Additional Health Concerns Assessment Noted Time PHQ-9 Depression Total Score: 0 04/04/20 23 9:07 AM EDT documented as of this encounter Care Teams End Frazer Relationship Specialty Start Date End Date Marcelina Maldonado FNP [address] [place] [address] PCP - General Family Medicine 02/24/22 documented as of this encounter
--- OUTSIDE RECORDS SUMMARY | 2025-02-21 11:43 | XMS_ITS | Encounter Summary ---
Author Organization [employer] Address [address] [facility] [address]t [place] [address] Care Team Providers Care Airborne Sensor Specialist Name Role Phone [facility] Primary Care Provider [phone] Reason for Visit * Reason Comments Med Refill Encounter Details Date Type Department Care Team ([facility] st Contact Info) Description 09/02/2023 Refill [facility] MEDICINE [address] [place], [place] [phone] [facility] [address] [place] [address] Social History Tobacco Use Types Packs/Day Years [...] Description 05/03/2025 1:00 PM EDT Office Visit [facility] MEDICINE [address] [place] [address] Gunnar Harper MD [address] [place] [address] 06/14/2025 9:30 AM EDT Office Visit [facility] OPTOMETRY [address] [place] [address] Julien, Yeny, OD [address] [place] [address] documented as of this encounter Visit Diagnoses Not on filedocumented in this encounter Additional Health Concerns Assessment Noted Time PHQ-9 Depression Total Score: 0 04/04/20 23 9:07 AM EDT documented as of this encounter Care Teams Airborne Sensor Specialist Relationship Specialty Start Date End Date Marcelina Maldonado FNP [address] [place] [address] PCP - General Family Medicine 02/24/22 documented as of this encounter
--- OUTSIDE RECORDS SUMMARY | 2025-02-21 11:43 | XMS_ITS | Encounter Summary ---
Author Organization [employer] Address [address] [facility] [address]t [place] [address] Care Team Providers Care Senior Clinical Study Manager Name Role Phone [facility] Primary Care Provider Reason for Visit * Reason Comments Med Refill Encounter Details Date Type Department Care Team ([facility] st Contact Info) Description 09/05/2024 Refill [facility] MEDICINE [address] [place], [place] [phone] [facility] [address] [place] [address] Social History Tobacco Use Types Packs/Day Years [...] Description 05/03/2025 1:00 PM EDT Office Visit [facility] MEDICINE [address] [place] [address] Gunnar Harper MD [address] [place] [address] 06/14/2025 9:30 AM EDT Office Visit [facility] OPTOMETRY [address] [place] [address] Julien, Yeny, OD [address] [place] [address] documented as of this encounter Visit Diagnoses Not on filedocumented in this encounter Additional Health Concerns Assessment Noted Time PHQ-9 Depression Total Score: 0 04/04/20 23 9:07 AM EDT documented as of this encounter Care Teams Senior Clinical Study Manager Relationship Specialty Start Date End Date Marcelina Maldonado FNP [address] [place] [address] PCP - General Family Medicine 02/24/22 documented as of this encounter
--- OUTSIDE RECORDS SUMMARY | 2025-02-21 11:43 | XMS_ITS | Clinical Summary ---
Author Organization [employer] Address [address] [facility] [address] [place] [address] Care Team Providers Care Sole Blacker Name Role Phone Marcelina Maldonado PERSONNEL ASSISTANT Primary Care Provider [phone] Allergies No known active allergies Medications Diclofenac Sodium 1 % gel Apply 2 g topically every 6 (six) hours. 05/27/20 21 Active ergocalciferol (Vitamin D-2) 1.25 MG (97053 UT) capsule take 1 capsule by oral route every week 12/02/19 22 Active TRUEplus Lancets 33G miscIndications:T ype 2 diabetes mellitus with other specified complication, unspecified whether marine oil terminal superintendent insulin use (CMS/HCC) TEST BLOOD SUGAR FOUR TIMES DAILY 100 each 11 03/04/20 23 Active Blood Glucose Monitoring Suppl (GNP Easy Touch Glucose Meter) deviceIndications :Type 2 diabetes mellitus with hyperglycemia, without long-term current use of insulin (CMS/HCC) Use as directed to check blood sugar four times daily 1 each 04/04/20 23 Active naproxen (Naprosyn) 500 MG tabletIndications :Varicose veins of both lower extremities with inflammation TAKE 1 TABLET BY MOUTH IN THE MORNING AND AT BEDTIME NEEDED FOR MILD PAIN 60 tablet 08/31/20 23 Active Blood Pressure kitIndications:Be nign essential hypertension Use as directed 1 kit 06/11/20 24 Active glucose blood (FREESTYLE LITE) test stripIndications: Type 2 diabetes mellitus with hyperglycemia, without long-term current use of insulin (CMS/HCC) USE DIRECTED TO TEST BLOOD SUGAR FOUR TIMES DAILY 100 strip 11 06/20/20 24 Active Alcohol Swabs (Alcohol Prep) padsIndications:T ype 2 diabetes mellitus with hyperglycemia, without long-term current use of insulin (CMS/HCC) Use one pad each to prep skin prior to injection as directed 100 each 11 06/20/20 24 Active acetaminophen (Tylenol) 500 MG tabletIndications :Pain take 1-2 tablet by oral route every 6-8 hours as needed 60 tablet 08/02/20 24 Active glucose blood (FREESTYLE LITE) test stripIndications: Type 2 diabetes mellitus with other specified complication, unspecified whether marine oil terminal superintendent insulin use ([facility]),Type 2 diabetes mellitus with hyperglycemia, without long-term current use of insulin ([facility]) USE DIRECTED TO TEST BLOOD SUGAR ONCE DAILY 100 each 08/22/20 24 Active TRUEplus Lancets 33G miscIndications:T ype 2 diabetes mellitus with other specified complication, unspecified whether marine oil terminal superintendent insulin use ([facility]),Type 2 diabetes mellitus with hyperglycemia, without long-term current use of insulin ([facility]) USE DIRECTED TO TEST BLOOD SUGAR EVERY DAY 100 each 08/22/20 24 Active hydroCHLOROthiazi de (HYDRODiuril) 25 MG tabletIndications :Benign essential hypertension TAKE 1 TABLET BY MOUTH EVERY MORNING 90 tablet 11/07/19 25 Active metFORMIN (Glucophage) 500 MG tablet TAKE 2 TABLETS BY MOUTH TWICE DAILY 360 tablet 1 11/14/19 25 Active Dulaglutide 3 MG/0.5ML solution auto-injectorIndi cations:Type 2 diabetes mellitus with hyperglycemia, without long-term current use of insulin ([facility]) Inject 3 mg under the skin 1 (one) time per week. 2 mL 12/11/19 25 026 Active gabapentin (Neurontin) 100 MG capsuleIndication s:Diabetic polyneuropathy associated with type 2 diabetes mellitus ([facility]) Take 1 capsule by oral route nightly. May self increase up to 3 capsules (300mg) if needed for symptom relief 120 capsule 12/11/19 25 Active omeprazole (PriLOSEC) [address] capsuleIndication s:Dyspepsia TAKE 1 CAPSULE BY MOUTH EVERY DAY BEFORE BREAKFAST. DO NOT BREAK, CRUSH, DISSOLVE OR CHEW. 90 capsule 1 02/05/20 25 Active atorvastatin (Lipitor) 80 MG tabletIndications :Mixed hyperlipidemia TAKE 1 TABLET BY MOUTH EVERY DAY 90 tablet 1 02/14/20 25 Active lisinopril 10 MG tabletIndications :Benign essential hypertension TAKE 1 TABLET BY MOUTH EVERY DAY 90 tablet 1 02/14/20 25 Active atorvastatin (Lipitor) 80 MG tabletIndications :Mixed hyperlipidemia TAKE 1 TABLET BY MOUTH ONCE DAILY 90 tablet 1 06/11/20 24 025 Discontinued lisinopril 10 MG tabletIndications :Benign essential hypertension TAKE 1 TABLET BY MOUTH ONCE DAILY 90 tablet 1 06/11/20 24 025 Discontinued omeprazole (PriLOSEC) [address] capsuleIndication s:Dyspepsia Take 1 capsule (20 mg) by mouth before breakfast. Do not crush or chew. 90 capsule 1 09/10/20 24 025 Discontinued Active Problems Problem Noted Date Diagnosed Date Vascular insufficiency 03/03/2023 Overview (03/03/2023): - Followed by [facility] vascular for vascular insufficiency. 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 Likely s/t to ETOH Healthcare maintenance 09/15/2022 Overview (06/11/2024): CRC: Needs to reschedule=pt will call PSA: 03/2023 WNL Vision: [facility] 08/2023 Dental: Pt to establish at [facility] AAA: Ordered today LDLCT: <10 pack year [...] Followed by podiatry Eye Exam: Followed by [facility] ASCVD: LDL < 70 Statin: Yes ASA: [...] Encounters Date Type Department Care Team Description 02/15/2025 Outside Procedure [facility] OPTOMETRY [address] [place] [address] Yeny Victoria, OD Presbyopia (Primary Dx) 02/13/2025 Refill [facility] MEDICINE [address] [place] [address] [facility] Mixed hyperlipidemia; Benign essential hypertension 02/12/2025 1:00 PM EDT Office Visit [facility] OPTOMETRY [address] [place] [address] Yeny Victoria, OD Regular astigmatism of right eye (Primary Dx) 02/11/2025 10:30 AM EDT Office Visit [facility] OPTOMETRY [address] [place] [address] Yeny Victoria, OD Presbyopia (Primary Dx) 02/04/2025 Refill [facility] MEDICINE [address] [place] [address] [facility], PERSONNEL ASSISTANT Dyspepsia 12/14/2024 Population Health Risk Score Community Care [facility] ([facility]) Department [address] [phone] Provider, Population Health Generic 12/12/2024 9:00 AM EDT Office Visit [facility] OPTOMETRY [address] [place] [address] Yeny Victoria, OD Diabetes type 2, no ocular involvement (CMS/HCC) (Primary Dx); RPE mottling of macula; Dry eyes; Early cataracts, bilateral; Presbyopia 12/12/2024 Telephone [facility] MEDICINE [address] [place] [address] Marcelina Maldonado FNP Results 12/12/2024 Orders Only [facility] WALK-IN CENTER [address] [place] [address] JoelMarcelina leonard FNP Elevated alkaline phosphatase level (Primary Dx) 12/12/2024 Travel 12/10/2024 9:00 AM EDT Office Visit [facility] MEDICINE [address] [place] [address] JoelMarcelina leonard FNP Diabetic polyneuropathy associated with type 2 diabetes mellitus (CMS/HCC) (Primary Dx); Type 2 diabetes mellitus with hyperglycemia, without long-term current use of insulin (CMS/HCC); Dietary counseling; Exercise counseling; Class 1 obesity due to excess calories with serious comorbidity and body mass index (BMI) of 34.0 to 34.9 in adult; Nail dystrophy; Neoplasm of uncertain behavior 12/10/2024 Travel 12/03/2024 Patient Outreach [facility] MED & PEDS [address] [place], [place] [phone] Marcelina Maldonado FNP Pre-visit Planning (SDOH negative, Tobacco screening negative. ) 11/26/2024 Telephone [facility] MEDICINE [address] [place] [address] Marcelina Maldonado FNP from Last 3 Months Immunizations Immunization Administration Dates Next Due Hep B, adult [...] Description 05/03/2025 1:00 PM EDT Office Visit [facility] MEDICINE [address] [place] [address] Gunnar Harper MD [address] [place] [address] 06/14/2025 9:30 AM EDT Office Visit [facility] OPTOMETRY [address] [place] [address] Julien, Yeny, OD [address] [place] [address] Health Maintenance Due Date Last Done Comments CT Colonography 1957 FIT DNA/Cologuard 1957 FIT 1957 FOBT 1957 Sigmoidoscopy 1957 Zoster Vaccines (3 of 3) 09/30/20222 022, 08/05/2022, 06/02/2022 COVID-19 Vaccine ( season) 2025 09/10/2024, 07/21/2023, 09/09/2022, Additional history exists Diabetes: Hemoglobin A1C 03/12/2025 025, 09/10/2024, 06/11/2024, Additional history exists Alcohol/Substance Use Screening 09/10/2025 09/10/2024 Colonoscopy 09/25/2025 09/25/2024 Colorectal Cancer Screening 09/25/2025 SDOH Screening 12/03/2025 12/03/2024 Depression Screening 12/10/2025 12/10/2024, 12/11/19 25 Diabetes: Foot Exam 12/10/2025 12/10/2024, 12/10/2024, 12/12/2023, Additional history exists Diabetes: Urine Protein Screening 12/10/2025 12/10/2024, 12/12/2023, 05/06/2022, Additional history exists Lipid Panel 12/10/2025 12/10/2024, 12/01, 03/28/2023, Additional history exists Tobacco Screening 12/26/2025 12/26/2024 Eye Exam 12/12/2026 12/12/2024, 12/01, 12/12/2024, Additional history exists RSV Patients and Patients Aged 60 years or older (1 - 1-dose 75+ series) 2032 DTaP/Tdap/Td Vaccines (3 - Td or Tdap) 08/01/2034 08/01/2024, 06/06/2019, 02/04/2010, Additional history exists Hepatitis C Screening Completed 05/06/2022 Hepatitis B Vaccines Completed 08/05/2022, 07/06/2019, 06/06/2019 Pneumococcal Vaccine: 50+ Years Completed 08/05/2022, 09/08/2010 Influenza Vaccine Completed 09/10/2024, , 08/05/2022, Additional [...] patient's age to complete this topic Meningococcal B Vaccine Aged Out No l onger eligible based on patient's age to complete [...] Procedure Name Priority Date/Time Associated Diagnosis Comments OCT, RETINA - OU - BOTH EYES Routine 12/12/2024 12:18 PM EDT RPE mottling of macula VITAMIN B12/FOLATE, SERUM PANEL Routine 12/10/2024 9:39 AM EDT Diabetic polyneuropathy associated with type 2 diabetes mellitus (CMS/HCC) LIPID PANEL, STANDARD Routine 12/10/2024 9:39 AM EDT Type 2 diabetes mellitus with hyperglycemia, without long-term current use of insulin (CMS/HCC) COMPREHENSIVE METABOLIC PANEL Routine 12/10/2024 9:39 AM EDT Type 2 diabetes mellitus with hyperglycemia, without long-term current use of insulin (CMS/HCC) ALBUMIN, RANDOM URINE W/CREATININE Routine 12/10/2024 9:39 AM EDT Type 2 diabetes mellitus with hyperglycemia, without long-term current use of insulin (CMS/HCC) POCT GLUCOSE Routine 12/10/2024 9:11 AM EDT Type 2 diabetes mellitus with hyperglycemia, without long-term current use of insulin (CMS/HCC) POCT GLYCATED HEMOGLOBIN, TOTAL Routine 12/10/2024 9:11 AM EDT Type 2 diabetes mellitus with hyperglycemia, without long-term current use of insulin (CMS/HCC) HM COLONOSCOPY Routine 09/25/2024 ZZZ HISTORICAL HEPATITIS C AB W/REFL TO HCV RNA, QN, PCR Routine 05/06/2022 2:43 PM EDT from Last 3 Months or Most Recently Relevant to Health Maintenance Results * Vitamin B12/Folate, Serum Panel (12/10/2024 9:39 AM EDT) Vitamin B12 410 200 - 900 pg/mL [facility] Comment:NORMAL 200-900 PG/ML INDETERMINATE 160-199 PG/ML DEFICIENT < 160 PG/ML Folate 14.5 > or = 4.0 ng/mL [facility] Comment:Reference Values:> o r = 4.0 ng/mL< 4.0 ng/mL suggests folate deficiency Methotrexate, aminopterin and folinic acid(leucovorin) are chemotherapeutic agents whose molecularstructures are similar to folate; therefore, the Architectfolate assay cannot be used for patients using these drugs. Blood Venous blood specimen / Unknown 12/10/2024 9:39 AM EDT 12/10/2024 11:24 AM EDT [facility] LAB BLOOD ORDERABLES Final Re sult Performing Organization Address [facility] Co de Phone Number [facility] [address] [place] [address] [phone] * Albumin, Random Urine W/Creatinine (12/10/2024 9:39 AM EDT) Creatinine, Urine 222.03 mg/dL [facility] Microalbumin Urine 32.0 mg/L [facility] Microalbum Creatinine Ratio Ur 14.4 <30 ug/mg cr [facility] Comment:Albumin/Creatinine R atio Reference Ranges: Normal: < 30 ug/mg creatinine Microalbuminuria: 30 - 300 ug/mg creatinineClinical Albuminuria: > 300 ug/mg creatinine Urine 12/10/2024 9:39 AM EDT 12/10/2024 11:54 AM EDT [facility] LAB URINE ORDERABLES Final Re sult Performing Organization Address City/[facility]/ZIP Co de Phone Number [facility] [address] [place] [address] [phone] * (ABNORMAL) Lipid Panel, Standard (12/10/2024 9:39 AM EDT) Triglycerides 77 <150 mg/dL [facility] Comment:Desirable Triglyceri de: less than 150 mg/dLBorderline High Triglyceride 150-199 mg/dLHigh Triglyceride: 200-499 mg/dLVery High Triglyceride: greater than or equal to 5OO mg/dL Cholesterol 115 <200 mg/dL [facility] Comment:Desirable Cholestero l: less than 200 mg/dLBorderline High Cholesterol: 200-239 mg/dLHigh Cholesterol: greater than 239 mg/dL LDL Cholesterol Calculated 66 <100 mg/dL [facility] Comment:Desirable LDL: less than 100 mg/dLNear Optimal/Above Optimal LDL: 110- 129 mg/dLBorderline High LDL: 130-159 mg/dLHigh LDL: 160-189 mg/dLVery High LDL: greater than or equal to 190 mg/dL HDL Cholesterol 34(L) >40 mg/dL [facility] Comment:Desirable HDL: great er than 40 mg/dL Note: This HDL assay may give artificially low results in patients with liver disease. Blood Venous blood specimen / Unknown 12/10/2024 9:39 AM EDT 12/10/2024 11:24 AM EDT [facility] PERSONNEL ASSISTANT LAB BLOOD ORDERABLES Final Re sult [facility] [address] [place] [phone] * (ABNORMAL) Comprehensive Metabolic Panel (12/10/2024 9:39 AM EDT) Pathologist [facility] Sodium 135 135 - 145 mmol/L [facility] Potassium 3.8 3.3 - 5.1 mmol/L [facility] Chloride 98 96 - 108 mmol/L [facility] Carbon Dioxide 24 22 - 29 mmol/L [facility] Anion Gap 17 12 - 20 [facility] Urea Nitrogen (BUN) 12 9 - 16 mg/dL [facility] Creatinine, Serum 0.95 0.5 - 1.4 mg/dL [facility] Estimated Glomerular Filt Rate >60 [facility] Comment:Chronic Kidney Disea se: Estimated GFR < 60 mL/min/[id number] Kidney Disease: Estimated GFR < 15 mL/min/1.73m2 Glucose 178(H) 60 - 115 mg/dL [facility] Calcium 9.2 8.4 - 10.2 mg/dL [facility] Bilirubin, Total 0.6 0.0 - 1.0 mg/dL [facility] Aspartate Amino Transferase 35 5 - 37 U/L [facility] Alanine Aminotransferase 31 0 - 40 U/L [facility] Total Protein 7.8 6.5 - 8.0 g/dL [facility] Albumin Level 4.4 3.5 - 5.0 g/dL [facility] Alkaline Phosphatase 156(H) 39 - 117 U/L [facility] Blood Venous blood specimen / Unknown 12/10/2024 9:39 AM EDT 12/10/2024 11:24 AM EDT [facility] LAB BLOOD ORDERABLES Final Re sult [facility] [address] [place] [phone] * (ABNORMAL) POCT HGB A1C (12/10/2024 9:11 AM EDT) Pathologist [facility] Hemoglobin A1C 8.2(A) 4.0 - 6.0 % QC Media Lot # [id number] Lot# Expiration Date Blood 12/10/2024 9:11 AM EDT [facility] POINT OF CARE TEST ENTER/EDIT ORDERABLES Final Result * (ABNORMAL) POCT Glucose (12/10/2024 9:11 AM EDT) Pathologist [facility] Glucose Blood, POC 210(A) 60 - 200 mg/dL QC Media Lot # [id number] Lot# Expiration Date [id number] Blood Capillary blood specimen / Unknown 12/10/2024 9:11 AM EDT [facility] POINT OF CARE TEST ENTER/EDIT ORDERABLES Final Result * (ABNORMAL) Colonoscopy (09/25/2024) [facility] Colonoscopy Abnormal( A) Normal Comment:year follow-up due t o poor prep and polyps [facility] Provider MD HEALTH MAINTENANCE Final Result * HEPATITIS C AB W/REFL TO HCV RNA, QN, PCR (05/06/2022 2:43 PM EDT) [facility] HEPATITIS C ANTIBODY NON-REACT KELSY NON-REACT KELSY [facility] INDEX 0.40 <1.00 [facility] Comment: ?? HCV antibody was non-reactive. There is no laboratory ?? evidence of HCV infection. ?? In most cases, no further action is required. However, if recent HCV exposure is suspected, a test for HCV RNA (test code 62093) is suggested. ?? For additional information please refer to http://education.[employer]/faq/OHH86q2 (This link is being provided for informational/ educational purposes only.) ?? 05/06/2022 2:43 PM EDT [facility] HISTORICAL/NON ORDERABLE LABS Final Result [facility] [address] from Last 3 Months or Most Recently Relevant to Health Maintenance Insurance MEDICARE [facility] STANDARD * Guarantor: Елена Estevan Account Type Relation to Patient Date of Phone Billing Address Personal/[place] [address] * Guarantor: Estevan Christiansen Account Type Relation to Patient Date of Phone Billing Address Personal/[place] [address] * Guarantor: Estevan Christiansen Account Type Relation to Patient Date of Phone Billing Address Personal/[place] [address] Care Teams Sole Blacker Relationship Specialty Start Date End Date Marcelina Maldonado FNP [address] [place] [phone] PCP - General Family Medicine 02/24/22
--- OUTSIDE RECORDS SUMMARY | 2025-02-21 11:43 | XMS_ITS | Clinical Summary ---
Author Organization [address] [facility] Address [address] [place] [address] Phone Care Team Providers Care Lithopone Charger Name Role Phone [facility] Primary Care Provider [phone] Allergies No known active allergies Medications acetaminophen (TYLENOL) 500 mg tablet Take 1 tablet (500 mg total) by mouth every 6 (six) hours if needed. Active alcohol swabs pads, medicated by Does not apply route. Active atorvastatin (LIPITOR) 80 mg tablet Take 1 tablet (80 mg total) by mouth 1 (one) time each day. Active blood-glucose meter [facility] Active blood pressure monitor (Blood Pressure Kit) kit by Does not apply route. Active diclofenac (VOLTAREN) 1 % topical gel Apply topically. Active dulaglutide (Trulicity) 0.75 mg/0.5 mL pen injector injection Inject into the skin. Active ergocalciferol (VITAMIN D-2) 1,250 mcg (50,000 unit) capsule Take 1 Capsule by mouth once a week. Active glipiZIDE 2.5 mg tablet Take by mouth. Active glucose blood (Blood Glucose Test) test strip by In Vitro route. Active hydroCHLOROthia zide (HYDRODIURIL) 25 mg tablet Take 1 tablet (25 mg total) by mouth 1 (one) time each day. Active lisinopriL (PRINIVIL,ZESTR IL) 10 mg tablet Take 1 tablet (10 mg total) by mouth 1 (one) time each day. Active metFORMIN (GLUCOPHAGE) 500 mg tablet Take 1 Tablet by mouth 2 times daily (with meals). Active naproxen (NAPROSYN) 500 mg tablet Take 1 Tablet by mouth 2 times daily (with meals). Active omeprazole (PriLOSEC) [address] capsule Take 1 capsule (20 mg total) by mouth 1 (one) time each day. Active TRUEPLUS LANCETS MISC by Does not apply route. Active Active Problems Problem Noted Date Diagnosed Date Benign essential hypertension 02/21/2024 Elevated alkaline phosphatase level 02/21/2024 Gastroesophageal reflux disease without esophagi tis 02/21/2024 Mixed hyperlipidemia 02/21/2024 Type 2 diabetes mellitus ([facility] V24, [facility] V 28) 02/21/2024 Varicose veins of lower extremity 02/21/2024 Vascular insufficiency 02/21/2024 Immunizations Name Administration Dates Next Due Td, Unspecified 11/22/2002 Social History Tobacco Use Types Packs/Day Years Used Date Smoking Tobacco: Never Assessed Sex and Gender Information Value Date Recorded Sex Assigned at Not on file Legal Sex Male 9:07 AM EST Gender Identity Not on file Sexual Orientation Not on file Last Filed Vital Signs Vital Sign Reading Time Taken Comments Blood Pressure - - Pulse - - Temperature - - Respiratory Rate - - Oxygen Saturation - - Inhaled Oxygen Concentration - - Weight 97.4 kg (214 lb 12.8 oz) 02/21/2024 8:42 AM EDT Height 175.3 cm (5' 9 ) 02/21/2024 8:42 AM EDT Body Mass Index 31.72 02/21/2024 8:42 AM EDT Plan of Treatment Upcoming Encounters Date Type Department Care Team (Late st Contact Info) Description 02/21/2025 1:00 PM EDT Consult Orthopedic Surgery - [place] [address] [phone] Cholo Castillo, DPJuan Antonio [address] [phone] Health Maintenance Due Date Last Done Comments Diabetes: Annual Foot Exam 1967 Diabetes: Annual Retina Eye Exam 1967 Pneumococcal Vaccine: 50+ Ye ars (1 of 2 - PCV) 1976 Diabetes: Annual GFR (Glomer ular Filtration Rate) 11/24/2003 11/24/2002 Zoster Vaccines (1 of 2) 2007 DTaP,Tdap,and Td Vaccines (2 - Td or Tdap) 11/22/2012 11/22/2002 RSV Immunization Adult Patie nts (1 - Risk 60-74 years 1-dose series) 2017 Abdominal Aortic Aneurysm (A AA) Screen 09/05/2022 Cholesterol Screening (Lipid Panel) 09/05/2022 11/24/2002 Colorectal Cancer Screening: Colonoscopy 09/05/2022 Hepatitis C Screening 09/05/2022 Medicare Annual Wellness Visit 09/05/2022 Social Influencers of Health Screening 09/05/2022 Falls Risk Assessment 2022 Depression Screening 04/04/2024 04/04/2023 Diabetes: Annual Urine Albumin-Creatinine Ratio (uACR) 04/27/2024 Diabetes: Blood Sugar Contro l Test (HGBA1C) 04/27/2024 Hypertension/CHF/CAD Annual BMP Blood Test 04/27/2024 11/24/2002 COVID-19 Vaccine (2023-2 5 season) 2024 Influenza Vaccine (Season Ended) 2025 HIB Vaccines Aged Out No longer eligi ble based on patient's age to complete this topic HPV Vaccines Aged Out No longer eligi ble based on patient's age to complete this topic Hepatitis A Vaccines Aged Out No long er eligible based on patient's age to complete this topic Hepatitis B Vaccines Aged Out No long er eligible based on patient's age to complete this topic IPV Vaccines Aged Out No longer eligi ble based on patient's age to complete this topic MMR Vaccines Aged Out No longer eligi ble based on patient's age to complete this topic Meningococcal ACWY Vaccine Aged Out N o longer eligible based on patient's age to complete this topic Meningococcal B Vaccine Aged Out No l onger eligible based on patient's age to complete this topic RSV Immunization Patients Un idania 20 months Aged Out No longer eligible b ased on patient's age to complete this topic Varicella Vaccines Aged Out No longer eligible based on patient's age to complete this topic Procedures Procedure Name Priority Date/Time Associated Diagnosis Comments ANNUAL BMP BLOOD TEST Routine 11/24/2002 LIPID PANEL Routine 11/24/2002 from Last 3 Months or Most Recently Relevant to Health Maintenance Results * Annual BMP Blood Test (11/24/2002) Annual BMP Blood Test Abstracted us Historical Provider HEALTH MAINTENANCE Final Result * (ABNORMAL) Lipid panel (11/24/2002) LDL/HDL Ratio 4 1 - 5 Triglycerides 48 10 - 240 mg/dL Cholesterol 232 10 - 240 mg/dL HDL 62 32 - 96 mg/dL LDL Cholesterol 160(A) 62 - 96 mg/dL Blood Venous blood specimen / Unknown Historical Provider LAB BLOOD ORDERABLES Aure l Result from Last 3 Months or Most Recently Relevant to Health Maintenance Insurance MEDICARE [place]ICAID - [place] Care Teams Lithopone Charger Relationship Specialty Start Date End Date [facility] [address] [phone] PCP - General Family Medicine 12/31/24
== END 2025-02-21 11:30 | disposition home or self-care (01) ==
LOC: HO.HOS 11:04
PROVIDERS: PCP Registered Nurse; Visit Provider Orthopaedic Surgery
DX: M17.12 Unilateral primary osteoarthritis, left knee (principal); M25.562 Pain in left knee
CPT/HCPCS: 20610; 99213

== ENCOUNTER → 2025-02-21 11:04 | Outpatient (BNVA) | payer MEDICARE, MEDICAID, SELFPAY | PROVIDERS: PCP Registered Nurse; Visit Provider Orthopaedic Surgery | DX: M17.12 Unilateral primary osteoarthritis, left knee (principal) | CPT/HCPCS: 20610; 99212; J1010; J2003 ==

== ENCOUNTER 2025-07-31 09:41 | Outpatient (REF) | payer MEDICAID, SELFPAY | END 2025-07-31 09:42 | disposition home or self-care (01) | LOC: HO.HHCL 09:41 | PROVIDERS: PCP Registered Nurse; Visit Provider Registered Nurse | DX: Z13.89 Encounter for screening for other disorder (principal) | CPT/HCPCS: 36415; 80076 ==

== ENCOUNTER 2025-10-02 08:17 | Outpatient (REF) | payer MEDICARE, MEDICAID, SELFPAY ==
--- NOTE | ~2025-10-02 | US_ITS ---
EXAMINATION: US ABDOMEN COMPLETE CLINICAL INFORMATION: Elevated alkaline phosphatase level. 69-year-old male.. COMPARISON: Abdomen US 07/28/2022. TECHNIQUE: Real-time imaging of the abdominal viscera. FINDINGS: PANCREAS: Visualized portions are unremarkable. ABDOMINAL AORTA: The proximal and distal segments are normal in caliber. The mid is largely obscured by bowel gas. INFERIOR VENA CAVA: Visualized portions are normal. LIVER: The liver is normal in size. Right hepatic lobe measures 14.8 cm. The liver contour is normal. There is diffuse increased liver parenchymal echogenicity, consistent with hepatic steatosis. No focal hepatic lesion. There is no intrahepatic biliary duct dilatation seen. GALLBLADDER: The gallbladder is physiologically distended without evidence of stones, sludge, polyps, wall thickening or pericholecystic fluid. Negative sonographic Tenorio's sign. COMMON BILE DUCT: Normal in caliber measuring 0.3 cm in diameter. RIGHT KIDNEY: No hydronephrosis. No renal calculi or focal parenchymal lesions. The kidney measures 10.5 cm in maximum dimension. LEFT KIDNEY: No hydronephrosis. No renal calculi or focal parenchymal lesions. The kidney measures 10.6 cm in maximum dimension. SPLEEN: The spleen measures 9.5 cm in maximum dimension. FREE FLUID: None. US/US abdomen complete IMPRESSION: 1. Mild increased echogenicity of the liver, in keeping with hepatic steatosis. No suspicious hepatic lesion or biliary dilatation present. 2. Normal gallbladder. 3. The remainder the exam is normal. Electronically signed by: Carmelo Velez MD 10/02/2025 09:[address] [facility]
--- OUTSIDE RECORDS SUMMARY | 2025-10-02 08:21 | XMS_ITS | Clinical Summary ---
Author Organization [employer] Address [address] [facility] 7t [place] [address] Care Team Providers Care Entertainer & Comic Name Role Phone Marcelina Maldonado LOGGING OPERATIONS INSPECTOR Primary Care Provider [phone] Allergies No known active allergies Medications Diclofenac Sodium 1 % gel Apply 2 g topically every 6 (six) hours. 05/27/20 21 Active ergocalciferol (Vitamin D-2) 1.25 MG (88501 UT) capsule take 1 capsule by oral route every week 12/02/19 22 Active TRUEplus Lancets 33G miscIndications:T ype 2 diabetes mellitus with other specified complication, unspecified whether middle or intermediate school principal insulin use (HCC) TEST BLOOD SUGAR FOUR TIMES DAILY 100 each 11 03/04/20 23 Active Blood Glucose Monitoring Suppl (GNP Easy Touch Glucose Meter) deviceIndications :Type 2 diabetes mellitus with hyperglycemia, without long-term current use of insulin (HCC) Use as directed to check blood sugar [...] hyperglycemia, without long-term current use of insulin (HCC) USE DIRECTED TO TEST BLOOD SUGAR FOUR TIMES DAILY 100 strip 11 06/20/20 24 Active Alcohol Swabs (Alcohol Prep) padsIndications:T ype 2 diabetes mellitus with hyperglycemia, without long-term current use of insulin (HCC) Use one pad each to prep skin prior to injection as directed 100 each 11 06/20/20 24 Active acetaminophen (Tylenol) 500 MG tabletIndications :Pain take 1-2 tablet by oral route every 6-8 hours as needed 60 tablet 08/02/20 24 Active glucose blood (FREESTYLE LITE) test stripIndications: Type 2 diabetes mellitus with other specified complication, unspecified whether skilled nursing insulin use ([facility]),Type 2 diabetes mellitus with hyperglycemia, without long-term current use of insulin ([facility]) USE DIRECTED TO TEST BLOOD SUGAR ONCE DAILY 100 each 08/22/20 24 Active TRUEplus Lancets 33G miscIndications:T ype 2 diabetes mellitus with other specified complication, unspecified whether middle or intermediate school principal insulin use ([facility]),Type 2 diabetes mellitus with hyperglycemia, without long-term current use of insulin ([facility]) USE DIRECTED TO TEST BLOOD SUGAR EVERY DAY 100 each 08/22/20 24 Active Dulaglutide 3 MG/0.5ML solution auto-injectorIndi cations:Type 2 diabetes mellitus with hyperglycemia, without long-term current use of insulin ([facility]) Inject 3 mg under the skin 1 (one) time per week. 2 mL 5 1:02 PM EST 12/11/19 25 026 Active gabapentin (Neurontin) 100 MG capsuleIndication s:Diabetic polyneuropathy associated with type 2 diabetes mellitus (HCC) Take 1 capsule by oral route nightly. May self increase up to 3 capsules (300mg) if needed for symptom relief 120 capsule 5 1:02 PM EST 12/11/19 25 Active hydroCHLOROthiazi de (HYDRODiuril) 25 MG tabletIndications :Benign essential hypertension TAKE 1 TABLET BY MOUTH EVERY DAY IN THE MORNING 90 tablet 1 03/06/20 25 Active metFORMIN (Glucophage) 500 MG tablet TAKE 2 TABLETS BY MOUTH TWICE DAILY 360 tablet 1 05/27/20 25 Active Multiple Vitamin (multivitamin) tabletIndications :Elevated alkaline phosphatase level Take 1 tablet by mouth Once per day. 90 tablet 3 07/31/20 25 026 Active omeprazole (PriLOSEC) [address] capsuleIndication s:Dyspepsia TAKE 1 CAPSULE BY MOUTH EVERY DAY BEFORE BREAKFAST. DO NOT BREAK, CRUSH, DISSOLVE OR CHEW 90 capsule 1 5 1:02 PM EST 08/21/20 25 Active lisinopril 10 MG tabletIndications :Benign essential hypertension TAKE 1 TABLET BY MOUTH EVERY DAY 90 tablet 1 09/30/20 25 Active atorvastatin (Lipitor) 80 MG tabletIndications :Mixed hyperlipidemia TAKE 1 TABLET BY MOUTH EVERY DAY 90 tablet 1 09/30/20 25 Active atorvastatin (Lipitor) 80 MG tabletIndications :Mixed hyperlipidemia TAKE 1 TABLET BY MOUTH EVERY DAY 90 tablet 1 02/14/20 25 025 Discontinued lisinopril 10 MG tabletIndications :Benign essential hypertension TAKE 1 TABLET BY MOUTH EVERY DAY 90 tablet 1 02/14/20 25 025 Discontinued Active Problems Problem Noted Date Diagnosed Date Diabetic polyneuropathy asso ciated with type 2 diabetes mellitus 08/01/2025 Vascular insufficiency 03/03/2023 Overview (03/03/2023): - Followed by [facility] vascular for vascular insufficiency. S/p bilateral GSV ablation 09/2021 - Has compression stockings Elevated alkaline phosphatase level 03/03/2023 Overview (03/03/2023): Likely s/t to ETOH Healthcare maintenance 09/15/2022 Overview (06/11/2024): CRC: Needs to reschedule=pt will call PSA: 03/2023 WNL Vision: [facility] 08/2023 Dental: Pt to establish at [facility] AAA: Ordered today LDLCT: <10 pack year hx Assessment & Plan (03/10/2023 6:02 AM EDT): We re refer to GI for CRC screening Accepts repeat PSA screening Encouraged shingles vaccine in pharmacy Varicose veins of lower extremity 10/05/2021 Benign essential hypertension 07/07/2015 Overview (04/04/2023): Lisinopril 10mg Hydrochlorothiazide 25mg Well controlled Maintenance: BMP: 03/2023 Lipid Panel:03/2023 [...] Assessment & Plan (04/04/2023 9:55 AM EDT): Well controlled Continue current regimen Assessment & Plan (03/10/2023 6:00 AM EDT): Well controlled Continue current regimen Complete labs Gastroesophageal reflux disease without esophagi tis 07/07/2015 Mixed hyperlipidemia 07/07/2015 Overview (03/03/2023): Atorvastatin 80mg daily Type 2 diabetes mellitus 07/07/2015 Overview (06/11/2024): Metformin 1000mg b.i.d Trulicity 1.5mg Foot Exam: 06/2022, Risk 1. Followed by podiatry Eye Exam: Followed by [facility] ASCVD: LDL < 70 Statin: Yes [...] Component Value Date HGBA1C 9.9 (A) 03/03/2023 INCREASE trulicity to 1.5mg sq Assessment & Plan (03/10/2023 6:03 AM EDT): Lab Results Component Value Date HGBA1C 9.9 (A) 03/03/2023 START trulicty .75mg Reviewed administration, risks, side effects Complete labs Resolved Problems Problem Noted Date Diagnosed Date Resolved Date Renovascular hypertension 07/07/2015 Overview (03/03/2023): HCTZ 25mg and Lisinopril 10mg Previously seen by cardiology for palpitations 2017, [...] Encounters Date Type Department Care Team Description 09/26/2025 Refill [facility] MEDICINE [address] [place] [address] Helga Wright MD Benign essential hypertension; Mixed hyperlipidemia 08/21/2025 Refill [facility] [address] [place] [address] Marcelina Maldonado FNP Dyspepsia 07/31/2025 9:00 AM EDT Office Visit [facility] [address] [place] [address] Marcelina Maldonado FNP Type 2 diabetes mellitus with hyperglycemia, without long-term current use of insulin (HCC) (Primary Dx); Benign essential hypertension; Elevated alkaline phosphatase level; Diabetic polyneuropathy associated with type 2 diabetes mellitus (HCC); Encounter for immunization; Encounter for vaccination 07/31/2025 Travel 07/31/[address] [address] Marcelina Maldonado FNP Chart Prep 07/24/2025 Patient Outreach [facility] [address] [place] [address] Marcelina Maldonado FNP Pre-visit Planning ([facility] screening was completed on 12/03/2024) from Last 3 Months Immunizations Immunization Administration Dates Next Due Hep B, adult 08/05/2022,07/06/2019,06/06/2019 Influenza High-dose Quadriva lent Preservative Free 07/21/2023 Influenza Injectable Quadriv alant Preservative Free IIV4 MDCK 08/05/2022,08/03/2021 Influenza injectable quadriv alent IIV4 with preservative 11/03/2017,07/07/2015 Influenza injectable quadriv alent preservative free 07/06/2019,09/20/2016,12/18/2014 Influenza, High Dose Seasona l, Preservative Free 07/31/2025,09/10/2024 Influenza, IIV3, injectable 06/02/2010 Influenza, Split (incl. ricardo fied surface antigen) 08/21/2012 Moderna Covid-19 Vaccine 12+ 05/06/2022, 09/17/2021,02/02/2021,01/05 Moderna Covid-19 Vaccine 6+ Bivalent 09/09/2022 Pfizer Covid-19 Vaccine 12+ 07/31/2025,,07/21/2023 Pneumococcal Conjugate PCV 20 08/05/2022 Pneumococcal Polysaccharide [...] Date Recorded Patient Health Questionnaire-9 Score 0 07/31/2025 Patient Health Questionnaire-9 Score 0 07/31/2025 Last PHQ-9: Questionnaire Data Not on file 1 Housing Stability Answer Date Recorded What is [...] Date Recorded Patient Health Questionnaire-2 Score 0 07/31/2025 Internet Access Answer Date Recorded Internet Access [...] Sign Reading Time Taken Comments Blood Pressure 138/82 07/31/2025 8:52 AM EDT Pulse 80 07/31/2025 8:52 AM EDT Temperature 36.2 C (97.1 F) 07/31/2025 8:52 AM EDT Respiratory Rate 20 07/31/2025 8:52 AM EDT Oxygen Saturation 98% 12/10/2024 8:59 AM EDT Inhaled Oxygen Concentration - - Weight 96.3 kg (212 lb 6.4 oz) 07/31/2025 8:52 A M EDT Height 170.2 cm (5' 7 ) 07/31/2025 8:52 AM EDT Body Mass Index 33.27 07/31/2025 8:52 AM EDT Plan of Treatment Upcoming Encounters Date Type Department Care Team (Late st Contact Info) Description 10/23/2025 10:00 AM EST Office Visit [facility] MEDICINE [address] [place], [place] [phone] [place] Marcelina, [facility] [address] [place] [address] Health Maintenance Due Date Last Done Comments CT Colonography 1957 FIT DNA/Cologuard 1957 FIT 1957 FOBT 1957 Sigmoidoscopy 1957 Zoster Vaccines (3 of 3) 09/30/2022 022, 08/05/2022, 06/02/2022 Colonoscopy 09/25/2025 09/25/2024, 09/25/2024 Colorectal Cancer Screening 09/25/2025 SDOH Screening 12/03/2025 12/03/2024 Diabetes: Foot Exam 12/10/2025 12/10/2024, 12/10/2024, 12/12/2023, Additional history exists Diabetes: Urine Protein Screening 12/10/2025 12/10/2024, 12/12/2023, 05/06/2022, Additional history exists Lipid Panel 12/10/2025 12/10/2024, 12/01, 03/28/2023, Additional history exists COVID-19 Vaccine ( season) 2026 07/31/2025, 09/10/2024, 07/21/2023, Additional history exists Diabetes: Hemoglobin A1C 01/29/2026 025, 12/10/2024, 09/10/2024, Additional history exists Alcohol/Substance Use Screening 07/31/2026 07/31/2025 Depression Screening 07/31/2026 07/31/2025, 07/31/20 25 Tobacco Screening 08/01/2026 08/01/2025 Eye Exam 12/12/2026 12/12/2024, 12/01, 12/12/2024, Additional history exists RSV Patients and Patients Aged 60 years or older (1 - 1-dose 75+ series) 2032 DTaP/Tdap/Td Vaccines (3 - Td or Tdap) 08/01/2034 08/01/2024, 06/06/2019, 02/04/2010, Additional history exists Hepatitis C Screening Completed 05/06/2022 Hepatitis B Vaccines Completed 08/05/2022, 07/06/2019, 06/06/2019 Pneumococcal Vaccine: 50+ Years Completed 08/05/2022, 09/08/2010 Influenza Vaccine Completed 07/31/2025, , 07/21/2023, Additional history exists HIB Vaccines Aged Out [...] on patient's age to complete this topic Goals Goal Patient Goal Type Associated Problems Recent Progress Patient-Stated? Author Help patients manage their type 2 diabetes Care Plan Help patients manage their type 2 diabetes Emiliana Momin RN Weekly blood pressure task Care Plan Weekly blood pressure task Emiliana Momin RN Help patients manage their type 2 diabetes Care Plan Help patients manage their type 2 diabetes Emiliana Momin RN Patient has chronic kidney disease Care Plan Patient has chronic kidney disease Emiliana Momin RN Help patients manage their type 2 diabetes Care Plan Help patients manage their type 2 diabetes Emiliana Momin RN Patient has diabetic neuropathy Care Plan Patient has diabetic neuropathy No Emiliana Boggs RN Procedures Procedure Name Priority Date/Time Associated Diagnosis Comments POCT GLYCATED HEMOGLOBIN, TOTAL Routine 07/31/2025 9:07 AM EDT Type 2 diabetes mellitus with hyperglycemia, without long-term current use of insulin ([facility]) POCT GLUCOSE (CPT-81998) Routine 07/31/2025 9:06 AM EDT Type 2 diabetes mellitus with hyperglycemia, without long-term current use of insulin ([facility]) ALBUMIN, RANDOM URINE W/CREATININE Routine 12/10/2024 9:39 AM EDT Type 2 diabetes mellitus with hyperglycemia, without long-term current use of insulin ([facility]) LIPID PANEL, STANDARD Routine 12/10/2024 9:39 AM EDT Type 2 diabetes mellitus with hyperglycemia, without long-term current use of insulin (CMS/HCC) HM COLONOSCOPY Routine 09/25/2024 ZZZ HISTORICAL HEPATITIS C AB W/REFL TO HCV RNA, QN, PCR Routine 05/06/2022 2:43 PM EDT from Last 3 Months or Most Recently Relevant to Health Maintenance Results * (ABNORMAL) POCT Hgb A1c (07/31/2025 9:07 AM EDT) Hemoglobin A1C 6.5(A) 4.0 - 5.7 % Blood 07/31/2025 9:07 AM EDT [facility] POINT OF CARE TEST ENTER/EDIT ORDERABLES Final Result * POCT Glucose (07/31/2025 9:06 AM EDT) Glucose Blood, POC 120 60 - 200 mg/dL QC Media Lot # [id number] Lot# Expiration Date 666 Blood Capillary blood specimen / Unknown 07/31/2025 9:06 AM EDT [facility] POINT OF CARE TEST ENTER/EDIT ORDERABLES Final Result * Albumin, Random Urine W/Creatinine (12/10/2024 9:39 AM EDT) Creatinine, Urine 222.03 mg/dL [facility] Microalbumin Urine 32.0 mg/L [facility] Microalbum Creatinine Ratio Ur 14.4 <30 ug/mg cr [facility] Comment:Albumin/Creatinine R atio Reference Ranges: Normal: < 30 ug/mg creatinine Microalbuminuria: 30 - 300 ug/mg creatinineClinical Albuminuria: > 300 ug/mg creatinine Urine 12/10/2024 9:39 AM EDT 12/10/2024 11:54 AM EDT [facility] LAB URINE ORDERABLES Final Re sult Performing Organization Address [facility] Co de Phone Number [facility] [address] [place] [address] [phone] * (ABNORMAL) Lipid Panel, Standard (12/10/2024 9:39 AM EDT) Triglycerides 77 <150 mg/dL [facility] Comment:Desirable Triglyceri de: less than 150 mg/dLBorderline High Triglyceride 150-199 mg/dLHigh Triglyceride: 200-499 mg/dLVery High Triglyceride: greater than or equal to 5OO mg/dL Cholesterol 115 <200 mg/dL [facility] Comment:Desirable Cholestero l: less than 200 mg/dLBorderline High Cholesterol: 200-239 mg/dLHigh Cholesterol: greater than 239 mg/dL LDL Cholesterol Calculated 66 <100 mg/dL [facility] Comment:Desirable LDL: less than 100 mg/dLNear Optimal/Above Optimal LDL: 110- 129 mg/dLBorderline High LDL: 130-159 mg/dLHigh LDL: 160-189 mg/dLVery High LDL: greater than or equal to 190 mg/dL HDL Cholesterol 34(L) >40 mg/dL [facility] Comment:Desirable HDL: great er than 40 mg/dL Note: This HDL assay may give artificially low results in patients with liver disease. Blood Venous blood specimen / Unknown 12/10/2024 9:39 AM EDT 12/10/2024 11:24 AM EDT [facility] LAB BLOOD ORDERABLES Final Re sult Performing Organization Address [facility]/ZIP Co de Phone Number [facility] [address] [place] [address] [phone] * (ABNORMAL) Hm Colonoscopy (09/25/2024) Colonoscopy Abnormal( A) Normal Comment:year follow-up due t o poor prep and polyps Historical Provider HEALTH MAINTENANCE Final Result * HEPATITIS C AB W/REFL TO HCV RNA, QN, PCR (05/06/2022 2:43 PM EDT) HEPATITIS C ANTIBODY NON-REACT [facility] NON-REACT [facility] INDEX 0.40 <1.00 [facility] Comment: HCV antibody was non-reactive. There is no laboratory evidence of HCV infection. In most cases, no further action is required. However, if recent HCV exposure is suspected, a test for HCV RNA (test code 87648) is suggested. For additional information please refer to http://education.morphCARD/faq/MDX84h6 (This link is being provided for informational/ educational purposes only.) 05/06/2022 2:43 PM EDT [facility] LOGGING OPERATIONS INSPECTOR HISTORICAL/NON ORDERABLE LABS Final Result [facility] [address] from Last 3 Months or Most Recently Relevant to Health Maintenance Additional Health Concerns Active Problems Noted Date Diagnosed Date Help patients manage their type 2 diabetes 08/22 Weekly blood pressure task 08/22/2025 Help patients manage their type 2 diabetes 08/22 Patient has chronic kidney disease 08/22/2025 Help patients manage their type 2 diabetes 08/22 Patient has diabetic neuropathy 08/22/2025 [place] [id number] [facility] Care Teams Entertainer & Comic Relationship Specialty Start Date End Date Marcelina Maldonado FNP [address] [place] [id number] PCP - General Family Medicine 02/24/22
--- OUTSIDE RECORDS SUMMARY | 2025-10-02 08:21 | XMS_ITS | Encounter Summary ---
Author Organization [employer] Address [address] [facility] 7t [place] [address] Care Team Providers Care Research Study Assistant Name Role Phone Marcelina Maldonado [facility] Primary Care Provider [phone] Reason for Visit * Reason Comments Med Refill Encounter Details Date Type Department Care Team ([facility] st Contact Info) Description 09/26/[address] [facility] MEDICINE [address] [place], [place] [phone] Helga Wright MD [address] [place], [place] [phone] Benign essential hypertension; Mixed hyperlipidemia Social History Tobacco Use Types Packs/Day Years [...] Description 10/23/2025 10:00 AM EST Office Visit [facility] MED[facility]INE [address] [place] [address] [facility] [address] [place] [address] documented as of this encounter Goals Goal Patient Goal Type Associated Problems Recent Progress Patient-Stated? Author Help patients manage their type 2 diabetes Care Plan Help patients manage their type 2 diabetes Emiliana Momin RN Weekly blood pressure task Care Plan Weekly blood pressure task No Emiliana Boggs, TINO Help patients manage their type 2 diabetes Care Plan Help patients manage their type 2 diabetes Emiliana Momin RN Patient has chronic kidney disease Care Plan Patient has chronic kidney disease Emiliana Momin, RN Help patients manage their type 2 diabetes Care Plan Help patients manage their type 2 diabetes Emiliana Momin RN Patient has diabetic neuropathy Care Plan Patient has diabetic neuropathy Emiliana Momin RN documented as of this encounter Visit Diagnoses Diagnosis Benign essential hypertension Essential hypertension, benign Mixed hyperlipidemia documented in this encounter Additional Health Concerns Active Problems Noted Date Diagnosed Date Help patients manage their type 2 diabetes 08/22 Weekly blood pressure task 08/22/2025 Help patients manage their type 2 diabetes 08/22 Patient has chronic kidney disease 08/22/2025 Help patients manage their type 2 diabetes 08/22 Patient has diabetic neuropathy 08/22/2025 Assessment Noted Time PHQ-9 Depression Total Score: 0 07/31/20 9:05 AM EDT documented as of this encounter Care Teams Research Study Assistant Relationship Specialty Start Date End Date Marcelina Maldonado FNP [address] [place] [phone] PCP - General Family Medicine 02/24/22 documented as of this encounter
--- OUTSIDE RECORDS SUMMARY | 2025-10-02 08:21 | XMS_ITS | Encounter Summary ---
Author Organization [employer] Address [address] [facility] 7t [place] [address] Care Team Providers Care Tennis Centre Manager Name Role Phone Marcelina Maldonado [facility] Primary Care Provider [phone] Reason for Visit * Reason Comments Med Refill Encounter Details Date Type Department Care Team ([facility] st Contact Info) Description 09/02/2023 Refill [facility] MEDICINE [address] [place], [place] [phone] Dez French MD [address] [place], [place] [phone] Social History Tobacco Use Types Packs/Day Years [...] Description 10/23/2025 10:00 AM EST Office Visit [facility] MEDICINE [address] [place] [address] Marcelina Maldonado FNP [address] [place] [address] documented as of this encounter Visit Diagnoses Not on filedocumented in this encounter Additional Health Concerns Assessment Noted Time PHQ-9 Depression Total Score: 0 04/04/20 23 9:07 AM EDT documented as of this encounter Care Teams Tennis Centre Manager Relationship Specialty Start Date End Date Marcelina Maldonado FNP [address] [place] [address] PCP - General Family Medicine 02/24/22 documented as of this encounter
--- OUTSIDE RECORDS SUMMARY | 2025-10-02 08:21 | XMS_ITS | Encounter Summary ---
Author Organization [employer] Address [address] [facility] 7t [place] [address] Care Team Providers Care Caramel Candy Maker Helper Name Role Phone [place] [facility] Primary Care Provider [phone] Reason for Visit * Reason Comments Med Refill Encounter Details Date Type Department Care Team ([facility] st Contact Info) Description 09/05/2024 Refill [facility] MEDICINE [address] [place], [place] [phone] [facility] [address] [place] [address] Social History Tobacco Use Types Packs/Day Years [...] Description 10/23/2025 10:00 AM EST Office Visit [facility] MEDICINE [address] [place] [address] Marcelina Maldonado FNP [address] [place] [address] documented as of this encounter Visit Diagnoses Not on filedocumented in this encounter Additional Health Concerns Assessment Noted Time PHQ-9 Depression Total Score: 0 04/04/20 23 9:07 AM EDT documented as of this encounter Care Teams Caramel Candy Maker Helper Relationship Specialty Start Date End Date Marcleina Maldonado FNP [address] [place] [address] PCP - General Family Medicine 02/24/22 documented as of this encounter
--- OUTSIDE RECORDS SUMMARY | 2025-10-02 08:21 | XMS_ITS | Encounter Summary ---
Author Organization [employer] Address [address] [facility] 7t [place] [address] Care Team Providers Care Well Shooter Name Role Phone [facility] Primary Care Provider [phone] Reason for Visit * Reason Comments Med Refill Encounter Details Date Type Department Care Team ([facility] st Contact Info) Description 09/02/[address] [facility] MEDICINE [address] [place], [place] [phone] [facility] [address] [place] [address] Social History Tobacco Use Types Packs/Day Years [...] 10:00 AM EST Office Visit [facility] MEDICINE [address] [place] [address] Marcelina Maldonado FNP [address] [place] [address] documented as of this encounter Visit Diagnoses Not on filedocumented in this encounter Additional Health Concerns Assessment Noted Time PHQ-9 Depression Total Score: 0 04/04/20 23 9:07 AM EDT documented as of this encounter Care Teams Well Shooter Relationship Specialty Start Date End Date Marcelina Maldonado FNP [address] [place] [address] PCP - General Family Medicine 02/24/22 documented as of this encounter
== END 2025-10-02 08:18 | disposition home or self-care (01) ==
LOC: HO.US 08:17
PROVIDERS: PCP Registered Nurse; Visit Provider Registered Nurse
DX: R74.8 Abnormal levels of other serum enzymes (principal)
CPT/HCPCS: 76700

== ENCOUNTER → 2025-10-02 08:20 | Outpatient (BNV) | payer MEDICARE, MEDICAID, SELFPAY | PROVIDERS: PCP Registered Nurse; Visit Provider Radiology Diagnostic Radiology | DX: R93.2 Abnormal findings on diagnostic imaging of liver and biliary tract (principal) | CPT/HCPCS: 76700 ==